=== PATIENT | male | born 1980 | race Caucasian/White ===

== ENCOUNTER 2017-11-27 03:44 | Inpatient (IN) | payer OTHER, MEDICAID ==
[~2017-11-27] VITALS: Ht 172.7 cm; Wt 92.2 kg
[2017-11-27] MEDS ORDERED: SODIUM CHLORIDE 0.9% 1,000 ML IV ONE (03:45)
[2017-11-27] MEDS ORDERED: SODIUM CHLORIDE 0.9% 1,000ML IVBOLUS ONE ×3 (04:00→06:00)
[2017-11-27] MEDS ORDERED: ONDANSETRON 2MG/ML, 2ML IVPush ONE (04:00)
[2017-11-27] MEDS ORDERED: SODIUM CHLORIDE FLUSH 10ML SYR IVF ONE (04:00)
[2017-11-27] MEDS ORDERED: HYDROmorphone 2 MG/ML, 1ML ONE (04:11)
[2017-11-27] MEDS ORDERED: ONDANSETRON 2MG/ML, 2ML ONE (04:12)
[2017-11-27 04:20] LABS: MEAN CORPUSCULAR HGB CONC 33.1 g/dL (33.2-36.2); MEAN CORPUSCULAR VOLUME 93.5 fL (81-97); MEAN PLATELET VOLUME 8.3 fL (7.4-10.4); PLATELET COUNT 303 x10^3/uL (130-400); RED BLOOD COUNT 5.73 x10^6/uL (4.38-5.82); RED CELL DISTRIBUTION WIDTH 14.9 % (9.4-14.8)
[2017-11-27] MEDS: HYDROmorphone 2 MG/ML, 1ML IVPush PRN ×6 (04:25→22:00)
[2017-11-27 04:30] LABS: INTERNATIONAL NORMALIZED RATIO 1.02 (0.93-1.1); PROTHROMBIN TIME 10.6 Seconds (9.6-11.5)
[2017-11-27 04:33] LABS: ALANINE AMINOTRANSFERASE 535 U/L (12-78); ALBUMIN 4.4 g/dL (3.4-5.0); ANION GAP 10 mmol/L (5-15); CALCIUM 9.3 mg/dL (8.5-10.1); CHLORIDE 102 mmol/L (98-107); CREATININE 1.25 mg/dL (0.7-1.3)
[2017-11-27 04:35] LABS: ALKALINE PHOSPHATASE 124 U/L (45-117); BILIRUBIN,TOTAL 1.4 mg/dL (0.2-1.0); TOTAL PROTEIN 8.6 g/dL (6.4-8.2)
[2017-11-27] MEDS ORDERED: OMNIPAQUE 350 MG/ML, 100ML BOTTLE ONE (04:48)
[2017-11-27 04:56] LABS: BASOPHILS # (AUTO) 0.02 x10^3/uL (0-0.1); BASOPHILS % (AUTO) 0 % (0-1); EOSINOPHILS # (AUTO) 0.03 x10^3/uL (0-0.4); EOSINOPHILS % (AUTO) 0 % (1-7); LYMPHOCYTES # (AUTO) 1.96 x10^3/uL (1-3.4); LYMPHOCYTES % (AUTO) 10 % (22-44); MD SCAN; MONOCYTES # (AUTO) 0.89 x10^3/uL (0.2-0.8); MONOCYTES % (AUTO) 5 % (2-9); NEUTROPHILS # (AUTO) 16.64 x10^3/uL (1.8-6.8); NEUTROPHILS % (AUTO) 85 % (42-75)
[2017-11-27] MEDS ORDERED: PIPERACILLIN/TAZO/PMX 3.375GM 50 ML IVPB ONE (05:30)
[2017-11-27] MEDS ORDERED: SODIUM CHLORIDE 0.9% 1,000 ML IV SCH (05:47)
[2017-11-27] MEDS ORDERED: CEFTRIAXONE PMX 1GM/50ML 50 ML ONE (05:49)
[2017-11-27] MEDS ORDERED: ENALAPRILAT 1.25 MG/ML, 2ML IVPush PRN (06:00)
[2017-11-27] MEDS ORDERED: PIPERACILLIN/TAZO/PMX 3.375GM 50 ML ONE (06:12)
[2017-11-27] MEDS: PIPERACILLIN/TAZO/PMX 3.375GM 50 ML IV SCH ×3 (06:25→18:13)
[2017-11-27 06:51] LABS: CHOL/HDL RATIO 3.6; LDL/HDL RATIO 2.2 (0.5-3.0)
[2017-11-27] MEDS ORDERED: MORPHINE SULFATE 4 MG/ML, 1ML ONE (06:59)
[2017-11-27] MEDS: morphine SULFATE 10 MG/ML, 1ML IVPush PRN ×2 (07:00→12:11)
[2017-11-27 07:12] VITALS: BP 137/92
[2017-11-27 08:02] VITALS: BP 137/92
[2017-11-27] MEDS ORDERED: HYDROmorphone 2 MG/ML, 1ML IVPush ONE (09:00)
[2017-11-27 13:43] VITALS: BP 132/97
[2017-11-27] MEDS: ONDANSETRON 2MG/ML, 2ML IVPush PRN ×2 (14:13→21:59)
[2017-11-27 19:00] VITALS: BP 99/59
[2017-11-27] MEDS: SODIUM CHLORIDE 0.9% 1,000 ML IV SCH (21:59)
[2017-11-28] VITALS (7 sets, daily range): BP systolic 63–97; BP diastolic 30–62
[2017-11-28] MEDS: HYDROmorphone 2 MG/ML, 1ML IVPush PRN ×3 (00:38→06:17)
[2017-11-28] MEDS: PIPERACILLIN/TAZO/PMX 3.375GM 50 ML IV SCH ×4 (00:39→21:39)
[2017-11-28] MEDS: SODIUM CHLORIDE 0.9% 1,000 ML IV SCH (03:52)
[2017-11-28] MEDS: ONDANSETRON 2MG/ML, 2ML IVPush PRN (03:52)
[2017-11-28 09:03] LABS: MEAN CORPUSCULAR HEMOGLOBIN 31.3 pg (27.5-34.5); MEAN CORPUSCULAR HGB CONC 32.9 g/dL (33.2-36.2); MEAN CORPUSCULAR VOLUME 95.2 fL (81-97); PLATELET COUNT 307 x10^3/uL (130-400); RED BLOOD COUNT 5.53 x10^6/uL (4.38-5.82); RED CELL DISTRIBUTION WIDTH 16.7 % (9.4-14.8)
[2017-11-28] MEDS ORDERED: NALOXONE 0.4 MG/ML, 1ML IVPush ONE (09:30)
[2017-11-28] MEDS ORDERED: NOREPINEPHRINE 4 MG in SODIUM CHLORIDE 0.9% 246 ML IV PRN (09:30)
[2017-11-28 09:52] LABS: MD YES
[2017-11-28 10:37] LABS: BAND#(MANUAL) 6.43 x10^3/uL; BANDS%(MANUAL) 24 % (0-7); LYMPH#(MANUAL) 1.88 x10^3/uL (1-3.4); LYMPHS% (MANUAL) 7 % (22-44); METAMYELOCYTES% (MANUAL) 3 % (0-1); MONOS#(MANUAL) 3.75 x10^3/uL (0.3-2.7); MONOS% (MANUAL) 14 % (2-9); MYELOCYTES# (MANUAL) 0.27 x10^3/uL (0-0); MYELOCYTES% (MANUAL) 1 % (0-0); SEG#(MANUAL) 13.67 x10^3/uL (1.8-6.8); SEGS% (MANUAL) 51 % (42-75)
[2017-11-28 10:39] LABS: ANISOCYTOSIS 1+; POLYCHROMASIA 1+
[2017-11-28 10:40] LABS: <PLATELET ESTIMATE> ADEQUATE; <PLT MORPHOLOGY> NORMAL PLT MORPH
[2017-11-28 11:23] LABS: ALBUMIN 2.8 g/dL (3.4-5.0); ANION GAP 18 mmol/L (5-15); CHLORIDE 107 mmol/L (98-107); CREATININE 4.65 mg/dL (0.7-1.3)
[2017-11-28 11:40] LABS: ALANINE AMINOTRANSFERASE 2538 U/L (12-78); ALKALINE PHOSPHATASE 71 U/L (45-117); BILIRUBIN,TOTAL 2.1 mg/dL (0.2-1.0); TOTAL PROTEIN 6.3 g/dL (6.4-8.2)
[2017-11-28] MEDS ORDERED: MIDAZOLAM 1 MG/ML, 5ML ONE (12:00)
[2017-11-28] MEDS ORDERED: VECURONIUM 10 MG ONE ×2 (12:00)
[2017-11-28 12:07] LABS: CALCIUM 5.8 mg/dL (8.5-10.1)
[2017-11-28] MEDS ORDERED: DEXTROSE 50%, 50ML SYRINGE ONE (12:10)
[2017-11-28] MEDS ORDERED: INSULIN REGULAR 100 UNITS/ML, 3ML VIAL ONE (12:11)
[2017-11-28] MEDS ORDERED: INSULIN REGULAR 100 UNITS/ML, 3ML VIAL IVPush ONE (12:30)
[2017-11-28] MEDS ORDERED: SODIUM BICARBONATE 8.4% 150 MEQ in DEXTROSE 5% 1,000 ML IV SCH (12:30)
[2017-11-28] MEDS ORDERED: CALCIUM CHLORIDE 10%, 10ML SYR IVPush ONE (12:30)
[2017-11-28] MEDS ORDERED: CALCIUM CHLORIDE 10%, 10ML SYR ONE (12:30)
[2017-11-28] MEDS ORDERED: DEXTROSE 50%, 50ML SYRINGE IVPush ONE (12:30)
[2017-11-28] MEDS ORDERED: DEXMEDETOMIDINE 200 MCG in SODIUM CHLORIDE 0.9% 48 ML IV PRN (13:00)
[2017-11-28] MEDS ORDERED: FENTANYL PF 2,500 MCG in SODIUM CHLORIDE 0.9% 200 ML IV PRN (13:00)
[2017-11-28] MEDS ORDERED: PHARMACY MAY ADJ FOR RENAL FX MC SCH (13:30)
[2017-11-28] MEDS ORDERED: LIDOCAINE-MPF 1%, 2ML ENDO PRN (13:30)
[2017-11-28] MEDS: HEPARIN 5,000 UNITS/ML, 1ML SQ SCH ×2 (15:00→21:39)
[2017-11-28] MEDS ORDERED: SODIUM CHLORIDE 0.9% 1,000ML IVBOLUS ONE ×3 (15:00→18:00)
[2017-11-28] MEDS ORDERED: PHENYLEPHRINE 20 MG in SODIUM CHLORIDE 0.9% 248 ML IV PRN (15:30)
[2017-11-28] MEDS ORDERED: VASOPRESSIN 100 UNIT in SODIUM CHLORIDE 0.9% 495 ML IV PRN (15:30)
[2017-11-28] MEDS ORDERED: SODIUM BICARB 8.4%, 50ML SYRINGE ONE (15:35)
[2017-11-28] MEDS ORDERED: SODIUM BICARB 8.4%, 50ML SYRINGE IVPush ONE (15:37)
[2017-11-28 15:57] LABS: ALBUMIN 1.2 g/dL (3.4-5.0); ANION GAP 33 mmol/L (5-15); CHLORIDE 99 mmol/L (98-107); CREATININE 2.64 mg/dL (0.7-1.3)
[2017-11-28 16:12] LABS: ALANINE AMINOTRANSFERASE 1716 U/L (12-78); ALKALINE PHOSPHATASE 41 U/L (45-117); BILIRUBIN,TOTAL 1.1 mg/dL (0.2-1.0); TOTAL PROTEIN 4.2 g/dL (6.4-8.2)
[2017-11-28 16:32] LABS: CALCIUM < 5.0 mg/dL (8.5-10.1)
[2017-11-28] MEDS ORDERED: EPINEPHRINE 2 MG in SODIUM CHLORIDE 0.9% 248 ML IV PRN (17:30)
[2017-11-28] MEDS: ALBUMIN HUMAN 25% 100 ML IV SCH (17:31)
[2017-11-28] MEDS ORDERED: LIDOCAINE 2%, 2ML ONE (17:44)
[2017-11-28] MEDS ORDERED: CALCIUM GLUCONATE IV SCH (18:00)
[2017-11-28] MEDS ORDERED: SODIUM CHLORIDE 0.9% IV SCH (18:00)
[2017-11-28 18:57] LABS: MICROSCOPIC INDICATED
[2017-11-28 18:58] LABS: AMPHETAMINE SCREEN, URINE Negative (Negative); BARBITURATE SCREEN, URINE Negative (Negative); BENZODIAZEPINE SCREEN, URINE Positive (Negative); CANNABINOID SCREEN, URINE Negative (Negative); COCAINE SCREEN, URINE Negative (Negative); METHADONE SCREEN, URINE Negative (Negative); OPIATE SCREEN, URINE Positive (Negative)
[2017-11-28 19:10] LABS: CULTURE INDICATED? YES
[2017-11-28] MEDS: SODIUM BICARBONATE 8.4% 150 MEQ in DEXTROSE 5% 1,000 ML IV SCH (19:23)
[2017-11-28] MEDS: NOREPINEPHRINE 8 MG in SODIUM CHLORIDE 0.9% 242 ML IV PRN (21:38)
[2017-11-28 22:05] LABS: ALBUMIN 2.7 g/dL (3.4-5.0); ANION GAP 10 mmol/L (5-15); CALCIUM 7.3 mg/dL (8.5-10.1); CHLORIDE 101 mmol/L (98-107)
[2017-11-28 22:22] LABS: ALANINE AMINOTRANSFERASE 3004 U/L (12-78); ALKALINE PHOSPHATASE 70 U/L (45-117); BILIRUBIN,TOTAL 2.4 mg/dL (0.2-1.0); CREATININE 2.22 mg/dL (0.7-1.3); TOTAL PROTEIN 5.2 g/dL (6.4-8.2)
[2017-11-28] MEDS: MIDAZOLAM HCL 25 MG in SODIUM CHLORIDE 0.9% 245 ML IV PRN (23:06)
[2017-11-29] MEDS: SODIUM BICARBONATE 8.4% 150 MEQ in DEXTROSE 5% 1,000 ML IV SCH ×3 (00:07→17:30)
[2017-11-29] MEDS: ALBUMIN HUMAN 25% 100 ML IV SCH ×4 (00:07→20:55)
[2017-11-29] MEDS: PIPERACILLIN/TAZO/PMX 3.375GM 50 ML IV SCH ×4 (04:10→22:31)
[2017-11-29] MEDS: HEPARIN 5,000 UNITS/ML, 1ML SQ SCH ×3 (04:10→20:55)
[2017-11-29] MEDS: NOREPINEPHRINE 8 MG in SODIUM CHLORIDE 0.9% 242 ML IV PRN (04:10)
[2017-11-29 04:35] LABS: BASOPHILS # (AUTO) 0.03 x10^3/uL (0-0.1); BASOPHILS % (AUTO) 0 % (0-1); EOSINOPHILS # (AUTO) 0.01 x10^3/uL (0-0.4); EOSINOPHILS % (AUTO) 0 % (1-7); LYMPHOCYTES % (AUTO) 16 % (22-44); MD NO; MEAN CORPUSCULAR HEMOGLOBIN 31.6 pg (27.5-34.5); MEAN CORPUSCULAR HGB CONC 33.8 g/dL (33.2-36.2); MEAN CORPUSCULAR VOLUME 93.7 fL (81-97); MEAN PLATELET VOLUME 8.6 fL (7.4-10.4); MONOCYTES # (AUTO) 0.23 x10^3/uL (0.2-0.8); MONOCYTES % (AUTO) 4 % (2-9); NEUTROPHILS # (AUTO) 5.33 x10^3/uL (1.8-6.8); NEUTROPHILS % (AUTO) 80 % (42-75); PLATELET COUNT 157 x10^3/uL (130-400); RED BLOOD COUNT 3.03 x10^6/uL (4.38-5.82); RED CELL DISTRIBUTION WIDTH 15.7 % (9.4-14.8)
[2017-11-29 04:37] LABS: FIO2 40 %
[2017-11-29 04:42] LABS: INTERNATIONAL NORMALIZED RATIO 1.16 (0.93-1.1)
[2017-11-29 04:49] LABS: CALCIUM 6.4 mg/dL (8.5-10.1); CHLORIDE 99 mmol/L (98-107); CREATININE 3.99 mg/dL (0.7-1.3)
[2017-11-29 05:05] LABS: ALANINE AMINOTRANSFERASE 1996 U/L (12-78); ALBUMIN 2.5 g/dL (3.4-5.0); ALKALINE PHOSPHATASE 51 U/L (45-117); ANION GAP 13 mmol/L (5-15); BILIRUBIN,TOTAL 2.3 mg/dL (0.2-1.0); TOTAL PROTEIN 4.8 g/dL (6.4-8.2)
[2017-11-29] MEDS ORDERED: CALCIUM GLUCONATE IV SCH ×4 (05:45→17:30)
[2017-11-29] MEDS ORDERED: SODIUM CHLORIDE 0.9% IV SCH ×7 (05:45→22:30)
[2017-11-29] MEDS ORDERED: MAGNESIUM SULFATE PMX 4GM/100M 100 ML IV ONE (07:30)
[2017-11-29] MEDS: MIDAZOLAM HCL 25 MG in SODIUM CHLORIDE 0.9% 245 ML IV PRN ×3 (09:32→22:32)
[2017-11-29] MEDS: PANTOPRAZOLE 40 MG IV IV SCH (09:33)
[2017-11-29] MEDS: ERGOCALCIFEROL 50,000 UNIT CAPSULE PO SCH (09:33)
[2017-11-29 10:18] LABS: ALBUMIN 2.8 g/dL (3.4-5.0); ANION GAP 11 mmol/L (5-15); CALCIUM 6.4 mg/dL (8.5-10.1); CHLORIDE 99 mmol/L (98-107)
[2017-11-29 10:36] LABS: ALANINE AMINOTRANSFERASE 1784 U/L (12-78); ALKALINE PHOSPHATASE 50 U/L (45-117); BILIRUBIN,TOTAL 2.8 mg/dL (0.2-1.0); CREATININE 4.44 mg/dL (0.7-1.3); TOTAL PROTEIN 5.1 g/dL (6.4-8.2)
[2017-11-29] MEDS: FENTANYL PF 2,500 MCG in SODIUM CHLORIDE 0.9% 200 ML IV PRN (10:49)
[2017-11-29] MEDS ORDERED: CALCIUM CHLORIDE 10% IV SCH ×3 (21:00→22:30)
[2017-11-30] MEDS: SODIUM BICARBONATE 8.4% 150 MEQ in DEXTROSE 5% 1,000 ML IV SCH ×2 (00:26→09:03)
[2017-11-30] MEDS ORDERED: LABETALOL 5MG/ML, 20ML ONE (02:48)
[2017-11-30] MEDS ORDERED: LABETALOL 5MG/ML, 20ML IVPush PRN ×2 (03:00)
[2017-11-30] MEDS: MIDAZOLAM HCL 25 MG in SODIUM CHLORIDE 0.9% 245 ML IV PRN ×4 (03:13→15:56)
[2017-11-30] MEDS: PIPERACILLIN/TAZO/PMX 3.375GM 50 ML IV SCH ×2 (03:24→10:04)
[2017-11-30 04:24] LABS: MEAN CORPUSCULAR HEMOGLOBIN 32.7 pg (27.5-34.5); MEAN CORPUSCULAR HGB CONC 34.8 g/dL (33.2-36.2); MEAN CORPUSCULAR VOLUME 93.9 fL (81-97); MEAN PLATELET VOLUME 8.3 fL (7.4-10.4); PLATELET COUNT 130 x10^3/uL (130-400); RED CELL DISTRIBUTION WIDTH 16.3 % (9.4-14.8)
[2017-11-30 04:27] LABS: ALBUMIN 2.6 g/dL (3.4-5.0); ANION GAP 9 mmol/L (5-15); CALCIUM 7.3 mg/dL (8.5-10.1); CHLORIDE 96 mmol/L (98-107); CREATININE 3.76 mg/dL (0.7-1.3)
[2017-11-30 04:34] LABS: ALANINE AMINOTRANSFERASE 1156 U/L (12-78)
[2017-11-30 04:35] LABS: ALKALINE PHOSPHATASE 43 U/L (45-117); BILIRUBIN,TOTAL 4.7 mg/dL (0.2-1.0)
[2017-11-30 04:58] LABS: MD YES
[2017-11-30 05:03] LABS: BAND#(MANUAL) 1.52 x10^3/uL; BANDS%(MANUAL) 20 % (0-7); EOS#(MANUAL) 0.08 x10^3/uL (0.0-0.4); EOS% (MANUAL) 1 % (1-7); LYMPH#(MANUAL) 1.82 x10^3/uL (1-3.4); LYMPHS% (MANUAL) 24 % (22-44); METAMYELOCYTES# (MANUAL) 0.15 x10^3/uL (0-0); METAMYELOCYTES% (MANUAL) 2 % (0-1); MONOS#(MANUAL) 0.38 x10^3/uL (0.3-2.7); MONOS% (MANUAL) 5 % (2-9); NRBC % (MANUAL) 2 % (0-1); SEG#(MANUAL) 3.65 x10^3/uL (1.8-6.8); SEGS% (MANUAL) 48 % (42-75)
[2017-11-30 05:04] LABS: <PLATELET ESTIMATE> ADEQUATE; <PLT MORPHOLOGY> NORMAL PLT MORPH; ANISOCYTOSIS 1+; POLYCHROMASIA 1+
[2017-11-30] MEDS: HEPARIN 5,000 UNITS/ML, 1ML SQ SCH (05:09)
[2017-11-30] MEDS: ALBUMIN HUMAN 25% 100 ML IV SCH (05:09)
[2017-11-30] MEDS: SODIUM CHLORIDE 0.9% IV SCH ×4 (05:09→21:30)
[2017-11-30] MEDS: CALCIUM CHLORIDE 10% IV SCH ×4 (05:09→21:30)
[2017-11-30] MEDS: FENTANYL PF 2,500 MCG in SODIUM CHLORIDE 0.9% 200 ML IV PRN (06:21)
[2017-11-30] MEDS ORDERED: SODIUM BICARBONATE 8.4% 150 MEQ in DEXTROSE 5% 1,000 ML IV SCH (09:30)
[2017-11-30] MEDS: PANTOPRAZOLE 40 MG IV IV SCH (10:02)
[2017-11-30 12:13] LABS: HIT RESULT NEGATIVE (NEGATIVE)
[2017-11-30 13:07] LABS: INTERNATIONAL NORMALIZED RATIO 0.98 (0.93-1.1); PROTHROMBIN TIME 10.2 Seconds (9.6-11.5)
[2017-11-30] MEDS ORDERED: PHYTONADIONE 10 MG in SODIUM CHLORIDE 0.9% 50 ML IV STA (13:07)
[2017-11-30] MEDS ORDERED: PHYTONADIONE 10 MG in SODIUM CHLORIDE 0.9% 50 ML IV ONE (13:30)
[2017-11-30 13:49] VITALS: BP 116/69
[2017-11-30 14:05] VITALS: BP 125/76
[2017-11-30 14:45] VITALS: BP 131/72
[2017-11-30] MEDS: DEXMEDETOMIDINE IV PRN (14:56)
[2017-11-30] MEDS: SODIUM CHLORIDE 0.9% IV PRN (14:56)
[2017-11-30] MEDS ORDERED: SODIUM CHLORIDE 0.9% IV SCH ×4 (15:00→15:03)
[2017-11-30] MEDS ORDERED: CALCIUM CHLORIDE 10% IV SCH ×4 (15:00→15:03)
[2017-11-30] MEDS ORDERED: OMNIPAQUE 350 MG/ML, 100ML BOTTLE ONE (17:07)
[2017-11-30] MEDS: MIDAZOLAM HCL 50 MG in SODIUM CHLORIDE 0.9% 240 ML IV PRN (20:01)
[2017-11-30] MEDS: PIPERACILLIN/TAZO 2.25 GM in NS 50 ML IV SCH (22:23)
[2017-11-30] MEDS: HYDROmorphone 2 MG/ML, 1ML IVPush PRN (23:50)
[2017-12-01] MEDS: HYDROmorphone 2 MG/ML, 1ML IVPush PRN ×3 (02:23→13:45)
[2017-12-01 03:32] LABS: MEAN CORPUSCULAR HEMOGLOBIN 31.5 pg (27.5-34.5); MEAN CORPUSCULAR HGB CONC 34.7 g/dL (33.2-36.2); MEAN CORPUSCULAR VOLUME 90.6 fL (81-97); MEAN PLATELET VOLUME 8.1 fL (7.4-10.4); PLATELET COUNT 123 x10^3/uL (130-400); RED BLOOD COUNT 2.63 x10^6/uL (4.38-5.82); RED CELL DISTRIBUTION WIDTH 17.6 % (9.4-14.8)
[2017-12-01 03:44] LABS: ALANINE AMINOTRANSFERASE 837 U/L (12-78); ALBUMIN 2.1 g/dL (3.4-5.0); ANION GAP 9 mmol/L (5-15); CHLORIDE 98 mmol/L (98-107)
[2017-12-01 03:47] LABS: ALKALINE PHOSPHATASE 46 U/L (45-117); BILIRUBIN,TOTAL 8.1 mg/dL (0.2-1.0); TOTAL PROTEIN 4.7 g/dL (6.4-8.2)
[2017-12-01 03:58] LABS: MD YES
[2017-12-01 04:01] LABS: BAND#(MANUAL) 1.61 x10^3/uL; BANDS%(MANUAL) 14 % (0-7); BASOS#(MANUAL) 0.12 x10^3/uL (0-0.1); BASOS% (MANUAL) 1 % (0-1); EOS#(MANUAL) 0.35 x10^3/uL (0.0-0.4); EOS% (MANUAL) 3 % (1-7); LYMPH#(MANUAL) 0.69 x10^3/uL (1-3.4); LYMPHS% (MANUAL) 6 % (22-44); METAMYELOCYTES# (MANUAL) 0.12 x10^3/uL (0-0); METAMYELOCYTES% (MANUAL) 1 % (0-1); MONOS#(MANUAL) 0.92 x10^3/uL (0.3-2.7); MONOS% (MANUAL) 8 % (2-9); NRBC % (MANUAL) 9 % (0-1); SEG#(MANUAL) 7.71 x10^3/uL (1.8-6.8); SEGS% (MANUAL) 67 % (42-75)
[2017-12-01 04:02] LABS: <PLATELET ESTIMATE> DECREASED; <PLT MORPHOLOGY> NORMAL PLT MORPH; ANISOCYTOSIS 1+; POLYCHROMASIA 1+
[2017-12-01 04:10] LABS: TRIGLYCERIDES 296 mg/dL (50-200)
[2017-12-01] MEDS: MIDAZOLAM HCL 50 MG in SODIUM CHLORIDE 0.9% 240 ML IV PRN ×3 (04:19→21:57)
[2017-12-01] MEDS: FENTANYL PF 2,500 MCG in SODIUM CHLORIDE 0.9% 200 ML IV PRN ×2 (04:20→22:15)
[2017-12-01] MEDS: PIPERACILLIN/TAZO 2.25 GM in NS 50 ML IV SCH ×3 (05:42→21:56)
[2017-12-01] MEDS ORDERED: DEXTROSE 50%, 50ML SYRINGE ONE (08:53)
[2017-12-01] MEDS: SODIUM CHLORIDE 0.9% IV SCH (08:57)
[2017-12-01] MEDS: CALCIUM CHLORIDE 10% IV SCH (08:57)
[2017-12-01] MEDS: SODIUM CHLORIDE 0.9% IV PRN (08:57)
[2017-12-01] MEDS: DEXMEDETOMIDINE IV PRN (08:57)
[2017-12-01] MEDS: PANTOPRAZOLE 40 MG IV IV SCH (09:30)
[2017-12-01] MEDS ORDERED: DEXTROSE 4 GM TAB.CHEW PO PRN (09:30)
[2017-12-01] MEDS ORDERED: DEXTROSE 10% 1,000 ML IV SCH (09:30)
[2017-12-01] MEDS ORDERED: GLUCAGON 1 MG IM PRN (09:30)
[2017-12-01] MEDS: DEXTROSE 50%, 50ML SYRINGE IVPush PRN ×2 (11:11→13:45)
[2017-12-01] MEDS ORDERED: MIDAZOLAM 1 MG/ML, 5ML ONE (13:57)
[2017-12-01] MEDS ORDERED: CALCIUM CHLORIDE 10% IV SCH (15:36)
[2017-12-01] MEDS ORDERED: SODIUM CHLORIDE 0.9% IV SCH (15:36)
[2017-12-01] MEDS ORDERED: MIDAZOLAM 1 MG/ML, 5ML IVPush ONE (16:30)
[2017-12-01] MEDS: DEXMEDETOMIDINE 1,000 MCG in SODIUM CHLORIDE 0.9% 240 ML IV PRN (16:33)
[2017-12-01] MEDS: NOREPINEPHRINE 8 MG in SODIUM CHLORIDE 0.9% 242 ML IV PRN ×2 (16:34→21:56)
[2017-12-01] MEDS: SODIUM CHLORIDE FLUSH 10ML SYR IVF SCH (21:55)
[2017-12-02 04:06] LABS: ALANINE AMINOTRANSFERASE 566 U/L (12-78); ALBUMIN 1.8 g/dL (3.4-5.0); ANION GAP 9 mmol/L (5-15); CALCIUM 7.5 mg/dL (8.5-10.1); CHLORIDE 99 mmol/L (98-107); CREATININE 5.29 mg/dL (0.7-1.3)
[2017-12-02 04:08] LABS: ALKALINE PHOSPHATASE 55 U/L (45-117); BILIRUBIN,TOTAL 11.3 mg/dL (0.2-1.0); TOTAL PROTEIN 4.8 g/dL (6.4-8.2)
[2017-12-02 04:09] LABS: MEAN CORPUSCULAR HEMOGLOBIN 31.9 pg (27.5-34.5); MEAN CORPUSCULAR HGB CONC 34.9 g/dL (33.2-36.2); MEAN CORPUSCULAR VOLUME 91.5 fL (81-97); MEAN PLATELET VOLUME 8.1 fL (7.4-10.4); PLATELET COUNT 142 x10^3/uL (130-400); RED BLOOD COUNT 2.72 x10^6/uL (4.38-5.82); RED CELL DISTRIBUTION WIDTH 17.5 % (9.4-14.8)
[2017-12-02 04:25] LABS: MD YES
[2017-12-02 04:28] LABS: BAND#(MANUAL) 2.48 x10^3/uL; BANDS%(MANUAL) 13 % (0-7); EOS#(MANUAL) 0.96 x10^3/uL (0.0-0.4); EOS% (MANUAL) 5 % (1-7); LYMPH#(MANUAL) 1.53 x10^3/uL (1-3.4); LYMPHS% (MANUAL) 8 % (22-44); METAMYELOCYTES# (MANUAL) 0.96 x10^3/uL (0-0); METAMYELOCYTES% (MANUAL) 5 % (0-1); MONOS#(MANUAL) 1.53 x10^3/uL (0.3-2.7); MONOS% (MANUAL) 8 % (2-9); MYELOCYTES# (MANUAL) 0.19 x10^3/uL (0-0); MYELOCYTES% (MANUAL) 1 % (0-0); NRBC % (MANUAL) 7 % (0-1); SEG#(MANUAL) 11.46 x10^3/uL (1.8-6.8); SEGS% (MANUAL) 60 % (42-75)
[2017-12-02 04:29] LABS: <PLATELET ESTIMATE> DECREASED; <PLT MORPHOLOGY> NORMAL PLT MORPH; ANISOCYTOSIS 1+; POLYCHROMASIA 1+
[2017-12-02 04:30] VITALS: BP 99/50
[2017-12-02] MEDS: PIPERACILLIN/TAZO 2.25 GM in NS 50 ML IV SCH ×2 (05:12→17:36)
[2017-12-02] MEDS: DEXMEDETOMIDINE 1,000 MCG in SODIUM CHLORIDE 0.9% 240 ML IV PRN ×2 (05:12→23:34)
[2017-12-02] MEDS: PANTOPRAZOLE 40 MG IV IV SCH (08:35)
[2017-12-02] MEDS ORDERED: DEXTROSE 10% 1,000 ML IV SCH (09:30)
[2017-12-02] MEDS: SODIUM CHLORIDE FLUSH 10ML SYR IVF SCH ×2 (09:36→21:30)
[2017-12-02] MEDS: DEXTROSE 10% 1,000 ML IV SCH (09:46)
[2017-12-02] MEDS ORDERED: ALBUMIN HUMAN 25% 100 ML IV PRN (12:00)
[2017-12-02] MEDS: ALBUMIN HUMAN 25% 100 ML IV PRN (13:45)
[2017-12-02] MEDS: SODIUM CHLORIDE 0.9% IV SCH (16:19)
[2017-12-02] MEDS: CALCIUM CHLORIDE 10% IV SCH (16:19)
[2017-12-02] MEDS: FENTANYL PF 2,500 MCG in SODIUM CHLORIDE 0.9% 200 ML IV PRN (18:32)
[2017-12-02] MEDS: MIDAZOLAM HCL 50 MG in SODIUM CHLORIDE 0.9% 240 ML IV PRN (18:33)
[2017-12-03] MEDS: PIPERACILLIN/TAZO 2.25 GM in NS 50 ML IV SCH ×3 (01:50→17:30)
[2017-12-03] MEDS: NOREPINEPHRINE 8 MG in SODIUM CHLORIDE 0.9% 242 ML IV PRN (03:20)
[2017-12-03 05:26] LABS: MEAN CORPUSCULAR HEMOGLOBIN 31.7 pg (27.5-34.5); MEAN CORPUSCULAR VOLUME 90.5 fL (81-97); MEAN PLATELET VOLUME 8.3 fL (7.4-10.4); PLATELET COUNT 150 x10^3/uL (130-400); RED BLOOD COUNT 2.61 x10^6/uL (4.38-5.82)
[2017-12-03 05:29] LABS: ALBUMIN 1.8 g/dL (3.4-5.0); ANION GAP 7 mmol/L (5-15); CALCIUM 8.6 mg/dL (8.5-10.1); CHLORIDE 104 mmol/L (98-107)
[2017-12-03 05:45] LABS: ALANINE AMINOTRANSFERASE 341 U/L (12-78); ALKALINE PHOSPHATASE 61 U/L (45-117); BILIRUBIN,TOTAL 12.3 mg/dL (0.2-1.0); CREATININE 4.99 mg/dL (0.7-1.3); PREALBUMIN 6.2 mg/dL (20.0-40.0); TOTAL PROTEIN 4.8 g/dL (6.4-8.2)
[2017-12-03 06:06] LABS: MD YES
[2017-12-03 06:07] LABS: % IRON SATURATION 11 % (20-55); IRON LEVEL 20 mcg/dL (65-175); TOTAL IRON BINDING CAPACITY 176 mcg/dL (250-450)
[2017-12-03 06:10] LABS: ANISOCYTOSIS 1+; BAND#(MANUAL) 3.45 x10^3/uL; BANDS%(MANUAL) 15 % (0-7); EOS#(MANUAL) 0.23 x10^3/uL (0.0-0.4); EOS% (MANUAL) 1 % (1-7); LYMPH#(MANUAL) 0.92 x10^3/uL (1-3.4); LYMPHS% (MANUAL) 4 % (22-44); METAMYELOCYTES# (MANUAL) 1.61 x10^3/uL (0-0); METAMYELOCYTES% (MANUAL) 7 % (0-1); MONOS#(MANUAL) 0.92 x10^3/uL (0.3-2.7); MONOS% (MANUAL) 4 % (2-9); MYELOCYTES# (MANUAL) 0.69 x10^3/uL (0-0); MYELOCYTES% (MANUAL) 3 % (0-0); NRBC % (MANUAL) 3 % (0-1); POLYCHROMASIA 1+; SEG#(MANUAL) 15.18 x10^3/uL (1.8-6.8); SEGS% (MANUAL) 66 % (42-75); TOXIC GRAN 1+
[2017-12-03 06:11] LABS: <PLATELET ESTIMATE> ADEQUATE; <PLT MORPHOLOGY> NORMAL PLT MORPH
[2017-12-03 06:14] LABS: BILIRUBIN, DIRECT 10.2 mg/dL (0.1-0.2)
[2017-12-03] MEDS: ERGOCALCIFEROL 50,000 UNIT CAPSULE PO SCH (08:30)
[2017-12-03] MEDS: CALCIUM CHLORIDE 10% IV SCH (08:44)
[2017-12-03] MEDS: SODIUM CHLORIDE 0.9% IV SCH (08:44)
[2017-12-03] MEDS: MIDAZOLAM HCL 50 MG in SODIUM CHLORIDE 0.9% 240 ML IV PRN (08:44)
[2017-12-03] MEDS: DEXTROSE 10% 1,000 ML IV SCH (08:45)
[2017-12-03] MEDS: PANTOPRAZOLE 40 MG IV IV SCH (08:48)
[2017-12-03] MEDS: SODIUM CHLORIDE FLUSH 10ML SYR IVF SCH ×2 (08:49→21:18)
[2017-12-03] MEDS ORDERED: FILTER, DISP 1.2 MICRON FOR TPN/PVN IV PRN (09:30)
[2017-12-03] MEDS ORDERED: SODIUM CHLORIDE 0.9% IV SCH ×2 (10:49→17:00)
[2017-12-03] MEDS ORDERED: CALCIUM CHLORIDE 10% IV SCH ×2 (10:49→17:00)
[2017-12-03] MEDS ORDERED: MIDAZOLAM HCL 100 MG in SODIUM CHLORIDE 0.9% 230 ML IV PRN (11:30)
[2017-12-03] MEDS: DEXMEDETOMIDINE IV PRN (13:49)
[2017-12-03] MEDS: SODIUM CHLORIDE 0.9% IV PRN (13:49)
[2017-12-03] MEDS: FENTANYL PF 2,500 MCG in SODIUM CHLORIDE 0.9% 200 ML IV PRN (15:51)
[2017-12-03] MEDS ORDERED: DEXTROSE 70% IV SCH (17:00)
[2017-12-03] MEDS ORDERED: [UNRECOGNIZED DRUG - OTHER] IV SCH (17:00)
[2017-12-03] MEDS ORDERED: AMINO ACID 10% IV SCH (17:00)
[2017-12-03] MEDS ORDERED: FAT EMULSIONS IV SCH (17:00)
[2017-12-03] MEDS ORDERED: DEXTROSE 10% 500 ML IV PRN (17:00)
[2017-12-03] MEDS ORDERED: TPN PER PHARMACY IV SCH (17:00)
[2017-12-03] MEDS ORDERED: DEXTROSE 50%, 50ML SYRINGE IVPush PRN (17:00)
[2017-12-03] MEDS: INSULIN REGULAR LOW DOSE Q6H X 48HRS SQ-INSULIN SCH (21:00)
[2017-12-04] MEDS: PIPERACILLIN/TAZO 2.25 GM in NS 50 ML IV SCH (02:05)
[2017-12-04] MEDS: INSULIN REGULAR LOW DOSE Q6H X 48HRS SQ-INSULIN SCH ×4 (03:00→21:00)
[2017-12-04 05:53] LABS: MEAN CORPUSCULAR HEMOGLOBIN 31.7 pg (27.5-34.5); MEAN CORPUSCULAR HGB CONC 35.1 g/dL (33.2-36.2); MEAN CORPUSCULAR VOLUME 90.5 fL (81-97); MEAN PLATELET VOLUME 8.2 fL (7.4-10.4); PLATELET COUNT 173 x10^3/uL (130-400); RED BLOOD COUNT 2.83 x10^6/uL (4.38-5.82); RED CELL DISTRIBUTION WIDTH 17.9 % (9.4-14.8)
[2017-12-04 06:02] LABS: ALANINE AMINOTRANSFERASE 228 U/L (12-78); ALBUMIN 1.8 g/dL (3.4-5.0); ANION GAP 10 mmol/L (5-15); CHLORIDE 103 mmol/L (98-107); CREATININE 5.14 mg/dL (0.7-1.3)
[2017-12-04 06:05] LABS: ALKALINE PHOSPHATASE 76 U/L (45-117); BILIRUBIN,TOTAL 14.6 mg/dL (0.2-1.0)
[2017-12-04 06:08] LABS: TRIGLYCERIDES 482 mg/dL (50-200)
[2017-12-04 06:15] LABS: MD YES
[2017-12-04 06:18] LABS: ANISOCYTOSIS 1+; BAND#(MANUAL) 4.13 x10^3/uL; BANDS%(MANUAL) 12 % (0-7); LYMPH#(MANUAL) 1.03 x10^3/uL (1-3.4); LYMPHS% (MANUAL) 3 % (22-44); METAMYELOCYTES# (MANUAL) 1.72 x10^3/uL (0-0); METAMYELOCYTES% (MANUAL) 5 % (0-1); MONOS#(MANUAL) 2.41 x10^3/uL (0.3-2.7); MONOS% (MANUAL) 7 % (2-9); MYELOCYTES# (MANUAL) 0.69 x10^3/uL (0-0); MYELOCYTES% (MANUAL) 2 % (0-0); NRBC % (MANUAL) 2 % (0-1); POLYCHROMASIA 1+; SEG#(MANUAL) 24.42 x10^3/uL (1.8-6.8); SEGS% (MANUAL) 71 % (42-75); TOXIC GRAN 1+
[2017-12-04 06:19] LABS: <PLATELET ESTIMATE> ADEQUATE; <PLT MORPHOLOGY> NORMAL PLT MORPH
[2017-12-04] MEDS ORDERED: MEROPENEM 1 GM in SODIUM CHLORIDE 0.9% 100 ML IV SCH (09:30)
[2017-12-04] MEDS: DEXTROSE 10% 1,000 ML IV SCH (09:30)
[2017-12-04] MEDS: PANTOPRAZOLE 40 MG IV IV SCH (10:16)
[2017-12-04] MEDS: SODIUM CHLORIDE FLUSH 10ML SYR IVF SCH ×2 (10:16→20:45)
[2017-12-04] MEDS: NOREPINEPHRINE 16 MG in SODIUM CHLORIDE 0.9% 234 ML IV PRN (10:17)
[2017-12-04 14:46] LABS: MEAN CORPUSCULAR HEMOGLOBIN 31.2 pg (27.5-34.5); MEAN CORPUSCULAR HGB CONC 34.8 g/dL (33.2-36.2); MEAN CORPUSCULAR VOLUME 89.6 fL (81-97); MEAN PLATELET VOLUME 8.3 fL (7.4-10.4); PLATELET COUNT 185 x10^3/uL (130-400); RED CELL DISTRIBUTION WIDTH 18.5 % (9.4-14.8)
[2017-12-04 14:51] LABS: ALBUMIN 1.8 g/dL (3.4-5.0); ANION GAP 6 mmol/L (5-15); CHLORIDE 112 mmol/L (98-107)
[2017-12-04 15:07] LABS: MD YES
[2017-12-04 15:10] LABS: BAND#(MANUAL) 3.46 x10^3/uL; BANDS%(MANUAL) 10 % (0-7); CALCIUM 17.3 mg/dL (8.5-10.1); LYMPH#(MANUAL) 0.69 x10^3/uL (1-3.4); LYMPHS% (MANUAL) 2 % (22-44); METAMYELOCYTES# (MANUAL) 1.73 x10^3/uL (0-0); METAMYELOCYTES% (MANUAL) 5 % (0-1); MONOS#(MANUAL) 1.04 x10^3/uL (0.3-2.7); MONOS% (MANUAL) 3 % (2-9); MYELOCYTES# (MANUAL) 1.38 x10^3/uL (0-0); MYELOCYTES% (MANUAL) 4 % (0-0); SEGS% (MANUAL) 76 % (42-75)
[2017-12-04 15:11] LABS: ANISOCYTOSIS 1+; TOXIC GRAN 2+
[2017-12-04 15:12] LABS: <PLATELET ESTIMATE> ADEQUATE; BASOPHILLIC STIPPLING 1+; LARGE PLATELETS 1+; POLYCHROMASIA 2+
[2017-12-04] MEDS: FENTANYL PF 2,500 MCG in SODIUM CHLORIDE 0.9% 200 ML IV PRN (15:50)
[2017-12-04] MEDS ORDERED: FILTER, DISP 1.2 MICRON FOR TPN/PVN IV PRN (17:00)
[2017-12-04] MEDS ORDERED: [UNRECOGNIZED DRUG - OTHER] IV SCH (17:00)
[2017-12-04] MEDS ORDERED: STERILE WATER IV SCH (17:00)
[2017-12-04] MEDS ORDERED: DEXTROSE 70% IV SCH (17:00)
[2017-12-04] MEDS ORDERED: AMINO ACID 10% IV SCH (17:00)
[2017-12-04] MEDS: MEROPENEM 500 MG in SODIUM CHLORIDE 0.9% 100 ML IV SCH (20:46)
[2017-12-04] MEDS: DEXMEDETOMIDINE IV PRN (22:12)
[2017-12-04] MEDS: MIDAZOLAM HCL 100 MG in SODIUM CHLORIDE 0.9% 230 ML IV PRN (22:12)
[2017-12-04] MEDS: SODIUM CHLORIDE 0.9% IV PRN (22:12)
[2017-12-05] MEDS: INSULIN REGULAR LOW DOSE Q6H X 48HRS SQ-INSULIN SCH ×3 (05:14→15:00)
[2017-12-05 05:29] LABS: MEAN CORPUSCULAR HEMOGLOBIN 31.8 pg (27.5-34.5); MEAN CORPUSCULAR HGB CONC 35.4 g/dL (33.2-36.2); MEAN CORPUSCULAR VOLUME 89.8 fL (81-97); MEAN PLATELET VOLUME 8.2 fL (7.4-10.4); PLATELET COUNT 223 x10^3/uL (130-400); RED BLOOD COUNT 2.72 x10^6/uL (4.38-5.82); RED CELL DISTRIBUTION WIDTH 18.3 % (9.4-14.8)
[2017-12-05 05:31] LABS: CHLORIDE 106 mmol/L (98-107)
[2017-12-05 05:39] LABS: ALANINE AMINOTRANSFERASE 178 U/L (12-78); ALBUMIN 1.8 g/dL (3.4-5.0); ALKALINE PHOSPHATASE 85 U/L (45-117); ANION GAP 12 mmol/L (5-15); BILIRUBIN,TOTAL 14.8 mg/dL (0.2-1.0); CALCIUM 9.1 mg/dL (8.5-10.1); CREATININE 3.98 mg/dL (0.7-1.3); TOTAL PROTEIN 5.5 g/dL (6.4-8.2)
[2017-12-05 06:04] LABS: MD YES
[2017-12-05 06:06] LABS: BAND#(MANUAL) 2.33 x10^3/uL; BANDS%(MANUAL) 7 % (0-7); LYMPH#(MANUAL) 1.67 x10^3/uL (1-3.4); LYMPHS% (MANUAL) 5 % (22-44); METAMYELOCYTES# (MANUAL) 0.67 x10^3/uL (0-0); METAMYELOCYTES% (MANUAL) 2 % (0-1); MONOS#(MANUAL) 0.33 x10^3/uL (0.3-2.7); MONOS% (MANUAL) 1 % (2-9); MYELOCYTES# (MANUAL) 0.67 x10^3/uL (0-0); MYELOCYTES% (MANUAL) 2 % (0-0); NRBC % (MANUAL) 2 % (0-1)
[2017-12-05 06:07] LABS: SEG#(MANUAL) 27.31 x10^3/uL (1.8-6.8); SEGS% (MANUAL) 82 % (42-75)
[2017-12-05 06:08] LABS: ANISOCYTOSIS 1+; REACTIVE LYMPHS # (MANUAL) 0.33 x10^3/uL (0-0); REACTIVE LYMPHS % (MANUAL) 1 % (0-0)
[2017-12-05 06:09] LABS: POLYCHROMASIA 1+; TOXIC GRAN 2+
[2017-12-05 06:10] LABS: <PLATELET ESTIMATE> ADEQUATE
[2017-12-05 06:11] LABS: LARGE PLATELETS 1+
[2017-12-05] MEDS: FENTANYL PF 2,500 MCG in SODIUM CHLORIDE 0.9% 200 ML IV PRN ×2 (08:21→22:56)
[2017-12-05] MEDS: PANTOPRAZOLE 40 MG IV IV SCH (09:14)
[2017-12-05] MEDS: SODIUM CHLORIDE FLUSH 10ML SYR IVF SCH ×2 (09:14→21:40)
[2017-12-05] MEDS: DEXTROSE 10% 1,000 ML IV SCH (09:30)
[2017-12-05] MEDS ORDERED: SODIUM CHLORIDE 0.9% IV ONE (10:00)
[2017-12-05] MEDS ORDERED: SODIUM PHOSPHATE IV ONE (10:00)
[2017-12-05] MEDS ORDERED: LIDOCAINE 1%, 20ML ONE (11:09)
[2017-12-05] MEDS: MIDAZOLAM HCL 100 MG in SODIUM CHLORIDE 0.9% 230 ML IV PRN (14:10)
[2017-12-05 14:33] LABS: MEAN CORPUSCULAR HEMOGLOBIN 31.7 pg (27.5-34.5); MEAN CORPUSCULAR HGB CONC 35.3 g/dL (33.2-36.2); MEAN CORPUSCULAR VOLUME 89.7 fL (81-97); MEAN PLATELET VOLUME 8.2 fL (7.4-10.4); PLATELET COUNT 256 x10^3/uL (130-400); RED BLOOD COUNT 2.64 x10^6/uL (4.38-5.82)
[2017-12-05 14:34] LABS: MD YES
[2017-12-05 14:43] LABS: ALBUMIN 1.9 g/dL (3.4-5.0); ANION GAP 13 mmol/L (5-15); CALCIUM 8.7 mg/dL (8.5-10.1); CHLORIDE 106 mmol/L (98-107)
[2017-12-05 14:45] LABS: CREATININE 2.71 mg/dL (0.7-1.3)
[2017-12-05 15:11] LABS: BAND#(MANUAL) 2.67 x10^3/uL; BANDS%(MANUAL) 8 % (0-7); LYMPHS% (MANUAL) 6 % (22-44); METAMYELOCYTES# (MANUAL) 0.67 x10^3/uL (0-0); METAMYELOCYTES% (MANUAL) 2 % (0-1); MONOS#(MANUAL) 0.67 x10^3/uL (0.3-2.7); MONOS% (MANUAL) 2 % (2-9); MYELOCYTES# (MANUAL) 0.67 x10^3/uL (0-0); MYELOCYTES% (MANUAL) 2 % (0-0); REACTIVE LYMPHS # (MANUAL) 0.33 x10^3/uL (0-0); REACTIVE LYMPHS % (MANUAL) 1 % (0-0); SEG#(MANUAL) 26.39 x10^3/uL (1.8-6.8); SEGS% (MANUAL) 79 % (42-75)
[2017-12-05 15:12] LABS: <PLATELET ESTIMATE> ADEQUATE; ANISOCYTOSIS 1+; LARGE PLATELETS 1+; NRBC % (MANUAL) 1 % (0-1); POLYCHROMASIA 1+; TOXIC GRAN 2+
[2017-12-05] MEDS ORDERED: DEXTROSE 70% IV SCH (17:00)
[2017-12-05] MEDS ORDERED: AMINO ACID 10% IV SCH (17:00)
[2017-12-05] MEDS ORDERED: FAT EMULSIONS IV SCH (17:00)
[2017-12-05] MEDS ORDERED: FILTER, DISP 1.2 MICRON FOR TPN/PVN IV PRN (17:00)
[2017-12-05] MEDS ORDERED: [UNRECOGNIZED DRUG - OTHER] IV SCH (17:00)
[2017-12-05] MEDS: HEPARIN 5,000 UNITS/ML, 1ML SQ SCH (17:21)
[2017-12-05] MEDS: MEROPENEM 500 MG in SODIUM CHLORIDE 0.9% 100 ML IV SCH (21:39)
[2017-12-06] MEDS: MIDAZOLAM HCL 100 MG in SODIUM CHLORIDE 0.9% 230 ML IV PRN ×3 (00:03→23:18)
[2017-12-06 05:01] LABS: MEAN CORPUSCULAR HGB CONC 35.3 g/dL (33.2-36.2); MEAN CORPUSCULAR VOLUME 90.7 fL (81-97); MEAN PLATELET VOLUME 8.3 fL (7.4-10.4); PLATELET COUNT 277 x10^3/uL (130-400); RED CELL DISTRIBUTION WIDTH 18.2 % (9.4-14.8)
[2017-12-06 05:04] LABS: CHLORIDE 106 mmol/L (98-107)
[2017-12-06 05:10] LABS: ALANINE AMINOTRANSFERASE 144 U/L (12-78); ALBUMIN 1.7 g/dL (3.4-5.0); ALKALINE PHOSPHATASE 90 U/L (45-117); ANION GAP 14 mmol/L (5-15); CALCIUM 7.9 mg/dL (8.5-10.1); CREATININE 3.53 mg/dL (0.7-1.3); TOTAL PROTEIN 5.9 g/dL (6.4-8.2)
[2017-12-06] MEDS: HEPARIN 5,000 UNITS/ML, 1ML SQ SCH ×2 (05:30→17:28)
[2017-12-06 05:44] LABS: MD YES
[2017-12-06 05:51] LABS: BAND#(MANUAL) 2.89 x10^3/uL; BANDS%(MANUAL) 11 % (0-7); EOS#(MANUAL) 0.26 x10^3/uL (0.0-0.4); EOS% (MANUAL) 1 % (1-7); LYMPH#(MANUAL) 1.84 x10^3/uL (1-3.4); LYMPHS% (MANUAL) 7 % (22-44); MONOS#(MANUAL) 0.26 x10^3/uL (0.3-2.7); MONOS% (MANUAL) 1 % (2-9); MYELOCYTES# (MANUAL) 0.26 x10^3/uL (0-0); MYELOCYTES% (MANUAL) 1 % (0-0)
[2017-12-06 05:52] LABS: METAMYELOCYTES# (MANUAL) 1.32 x10^3/uL (0-0); METAMYELOCYTES% (MANUAL) 5 % (0-1); NRBC % (MANUAL) 1 % (0-1); REACTIVE LYMPHS # (MANUAL) 0.26 x10^3/uL (0-0); REACTIVE LYMPHS % (MANUAL) 1 % (0-0)
[2017-12-06 05:53] LABS: SEGS% (MANUAL) 73 % (42-75)
[2017-12-06 05:54] LABS: <PLATELET ESTIMATE> ADEQUATE
[2017-12-06 05:55] LABS: <PLT MORPHOLOGY> NORMAL PLT MORPH; ANISOCYTOSIS 1+; POLYCHROMASIA 1+
[2017-12-06] MEDS: DEXMEDETOMIDINE IV PRN (06:39)
[2017-12-06] MEDS: SODIUM CHLORIDE 0.9% IV PRN (06:39)
[2017-12-06] MEDS: FENTANYL PF 2,500 MCG in SODIUM CHLORIDE 0.9% 200 ML IV PRN (08:15)
[2017-12-06] MEDS: PANTOPRAZOLE 40 MG IV IV SCH (08:26)
[2017-12-06] MEDS: ERGOCALCIFEROL 50,000 UNIT CAPSULE PO SCH (08:26)
[2017-12-06] MEDS: SODIUM CHLORIDE FLUSH 10ML SYR IVF SCH ×2 (08:26→23:17)
[2017-12-06] MEDS: INSULIN REGULAR LOW DOSE QDAY SQ-INSULIN SCH (08:52)
[2017-12-06] MEDS ORDERED: INSULIN NPH HUMAN 100 UNIT/ML, 3ML VIAL SQ-INSULIN SCH (10:00)
[2017-12-06] MEDS: LINEZOLID PMX 600MG/300ML 300 ML IV SCH ×2 (11:40→23:18)
[2017-12-06 14:23] LABS: ALBUMIN 1.8 g/dL (3.4-5.0); ANION GAP 10 mmol/L (5-15); CALCIUM 8.9 mg/dL (8.5-10.1); CHLORIDE 106 mmol/L (98-107)
[2017-12-06 14:24] LABS: CREATININE 2.52 mg/dL (0.7-1.3)
[2017-12-06 14:25] LABS: MEAN CORPUSCULAR HGB CONC 34.9 g/dL (33.2-36.2); MEAN CORPUSCULAR VOLUME 88.9 fL (81-97); RED BLOOD COUNT 2.51 x10^6/uL (4.38-5.82); RED CELL DISTRIBUTION WIDTH 18.5 % (9.4-14.8)
[2017-12-06 14:26] LABS: MD YES; MEAN PLATELET VOLUME 8.1 fL (7.4-10.4); PLATELET COUNT 333 x10^3/uL (130-400)
[2017-12-06 14:45] LABS: BAND#(MANUAL) 1.44 x10^3/uL; BANDS%(MANUAL) 5 % (0-7); EOS#(MANUAL) 0.86 x10^3/uL (0.0-0.4); EOS% (MANUAL) 3 % (1-7); LYMPH#(MANUAL) 1.44 x10^3/uL (1-3.4); LYMPHS% (MANUAL) 5 % (22-44); METAMYELOCYTES# (MANUAL) 0.86 x10^3/uL (0-0); METAMYELOCYTES% (MANUAL) 3 % (0-1); MONOS#(MANUAL) 0.29 x10^3/uL (0.3-2.7); MONOS% (MANUAL) 1 % (2-9); MYELOCYTES# (MANUAL) 0.29 x10^3/uL (0-0); MYELOCYTES% (MANUAL) 1 % (0-0); NRBC % (MANUAL) 3 % (0-1); REACTIVE LYMPHS # (MANUAL) 0.29 x10^3/uL (0-0); REACTIVE LYMPHS % (MANUAL) 1 % (0-0); SEG#(MANUAL) 23.33 x10^3/uL (1.8-6.8); SEGS% (MANUAL) 81 % (42-75)
[2017-12-06 14:47] LABS: ANISOCYTOSIS 1+; POLYCHROMASIA 1+
[2017-12-06 14:48] LABS: <PLATELET ESTIMATE> ADEQUATE; <PLT MORPHOLOGY> NORMAL PLT MORPH; TOXIC GRAN 1+
[2017-12-06] MEDS ORDERED: DEXTROSE 70% IV SCH (17:00)
[2017-12-06] MEDS ORDERED: [UNRECOGNIZED DRUG - OTHER] IV SCH (17:00)
[2017-12-06] MEDS ORDERED: AMINO ACID 10% IV SCH (17:00)
[2017-12-06] MEDS ORDERED: STERILE WATER IV SCH (17:00)
[2017-12-06] MEDS: MEROPENEM 500 MG in SODIUM CHLORIDE 0.9% 100 ML IV SCH (19:48)
[2017-12-06] MEDS: NOREPINEPHRINE 16 MG in SODIUM CHLORIDE 0.9% 234 ML IV PRN (23:18)
[2017-12-07] MEDS: SODIUM CHLORIDE 0.9% IV PRN ×2 (03:28→20:12)
[2017-12-07] MEDS: DEXMEDETOMIDINE IV PRN ×2 (03:28→20:12)
[2017-12-07] MEDS: FENTANYL PF 2,500 MCG in SODIUM CHLORIDE 0.9% 200 ML IV PRN ×2 (04:33→22:11)
[2017-12-07] MEDS: HEPARIN 5,000 UNITS/ML, 1ML SQ SCH ×2 (05:32→20:50)
[2017-12-07 05:54] LABS: ALANINE AMINOTRANSFERASE 117 U/L (12-78); ALBUMIN 1.7 g/dL (3.4-5.0); ANION GAP 16 mmol/L (5-15); CALCIUM 8.4 mg/dL (8.5-10.1); CHLORIDE 104 mmol/L (98-107); CREATININE 3.56 mg/dL (0.7-1.3)
[2017-12-07 05:56] LABS: ALKALINE PHOSPHATASE 103 U/L (45-117); BILIRUBIN,TOTAL 8.9 mg/dL (0.2-1.0); TOTAL PROTEIN 6.6 g/dL (6.4-8.2)
[2017-12-07 06:10] LABS: MEAN CORPUSCULAR HEMOGLOBIN 30.7 pg (27.5-34.5); MEAN CORPUSCULAR HGB CONC 34.5 g/dL (33.2-36.2); MEAN PLATELET VOLUME 8.2 fL (7.4-10.4); PLATELET COUNT 395 x10^3/uL (130-400); RED BLOOD COUNT 2.53 x10^6/uL (4.38-5.82); RED CELL DISTRIBUTION WIDTH 18.3 % (9.4-14.8)
[2017-12-07 06:26] LABS: TRIGLYCERIDES 412 mg/dL (50-200)
[2017-12-07 06:41] LABS: MD YES
[2017-12-07 06:45] LABS: BAND#(MANUAL) 3.22 x10^3/uL; BANDS%(MANUAL) 11 % (0-7); LYMPH#(MANUAL) 2.64 x10^3/uL (1-3.4); LYMPHS% (MANUAL) 9 % (22-44); MONOS#(MANUAL) 0.88 x10^3/uL (0.3-2.7); MONOS% (MANUAL) 3 % (2-9); MYELOCYTES# (MANUAL) 0.59 x10^3/uL (0-0); MYELOCYTES% (MANUAL) 2 % (0-0); NRBC % (MANUAL) 1 % (0-1); SEG#(MANUAL) 21.98 x10^3/uL (1.8-6.8); SEGS% (MANUAL) 75 % (42-75)
[2017-12-07 06:46] LABS: ANISOCYTOSIS 1+; POLYCHROMASIA 1+
[2017-12-07 06:48] LABS: <PLATELET ESTIMATE> ADEQUATE; <PLT MORPHOLOGY> NORMAL PLT MORPH; TOXIC GRAN 1+
[2017-12-07] MEDS: PANTOPRAZOLE 40 MG IV IV SCH (10:04)
[2017-12-07] MEDS: SODIUM CHLORIDE FLUSH 10ML SYR IVF SCH ×2 (10:04→20:50)
[2017-12-07] MEDS: INSULIN REGULAR LOW DOSE QDAY SQ-INSULIN SCH (10:04)
[2017-12-07] MEDS: LINEZOLID PMX 600MG/300ML 300 ML IV SCH ×2 (10:44→22:09)
[2017-12-07] MEDS: MIDAZOLAM HCL 100 MG in SODIUM CHLORIDE 0.9% 230 ML IV PRN (13:36)
[2017-12-07 14:08] LABS: ALBUMIN 1.8 g/dL (3.4-5.0); ANION GAP 13 mmol/L (5-15); CALCIUM 8.6 mg/dL (8.5-10.1); CHLORIDE 104 mmol/L (98-107); CREATININE 2.58 mg/dL (0.7-1.3)
[2017-12-07 14:34] LABS: MD YES
[2017-12-07 14:35] LABS: MEAN CORPUSCULAR HEMOGLOBIN 30.4 pg (27.5-34.5); MEAN CORPUSCULAR HGB CONC 34.4 g/dL (33.2-36.2); MEAN CORPUSCULAR VOLUME 88.4 fL (81-97); MEAN PLATELET VOLUME 8.3 fL (7.4-10.4); PLATELET COUNT 436 x10^3/uL (130-400); RED BLOOD COUNT 2.46 x10^6/uL (4.38-5.82); RED CELL DISTRIBUTION WIDTH 17.9 % (9.4-14.8)
[2017-12-07 14:38] LABS: BAND#(MANUAL) 3.11 x10^3/uL; BANDS%(MANUAL) 10 % (0-7); EOS#(MANUAL) 0.62 x10^3/uL (0.0-0.4); EOS% (MANUAL) 2 % (1-7); LYMPH#(MANUAL) 0.31 x10^3/uL (1-3.4); LYMPHS% (MANUAL) 1 % (22-44); METAMYELOCYTES# (MANUAL) 1.87 x10^3/uL (0-0); METAMYELOCYTES% (MANUAL) 6 % (0-1); MONOS#(MANUAL) 1.24 x10^3/uL (0.3-2.7); MONOS% (MANUAL) 4 % (2-9); MYELOCYTES# (MANUAL) 0.62 x10^3/uL (0-0); MYELOCYTES% (MANUAL) 2 % (0-0); SEG#(MANUAL) 23.33 x10^3/uL (1.8-6.8); SEGS% (MANUAL) 75 % (42-75)
[2017-12-07 14:41] LABS: ANISOCYTOSIS 1+; HYPOCHROMIA 1+
[2017-12-07 14:42] LABS: <PLATELET ESTIMATE> ADEQUATE; <PLT MORPHOLOGY> NORMAL PLT MORPH
[2017-12-07] MEDS ORDERED: STERILE WATER IV SCH ×2 (17:00)
[2017-12-07] MEDS ORDERED: AMINO ACID 10% IV SCH ×2 (17:00)
[2017-12-07] MEDS ORDERED: [UNRECOGNIZED DRUG - OTHER] IV SCH (17:00)
[2017-12-07] MEDS ORDERED: DEXTROSE 70% IV SCH ×2 (17:00)
[2017-12-07] MEDS ORDERED: [UNRECOGNIZED DRUG - OTHER] IV SCH (17:00)
[2017-12-07] MEDS: FILTER, DISP 1.2 MICRON FOR TPN/PVN IV PRN (18:38)
[2017-12-07] MEDS: MEROPENEM 500 MG in SODIUM CHLORIDE 0.9% 100 ML IV SCH (20:12)
[2017-12-07] MEDS: HYDROmorphone 2 MG/ML, 1ML IVPush PRN (21:58)
[2017-12-08] MEDS: MIDAZOLAM HCL 100 MG in SODIUM CHLORIDE 0.9% 230 ML IV PRN ×2 (00:45→11:42)
[2017-12-08 03:09] LABS: MEAN CORPUSCULAR HEMOGLOBIN 30.6 pg (27.5-34.5); MEAN CORPUSCULAR HGB CONC 34.2 g/dL (33.2-36.2); MEAN CORPUSCULAR VOLUME 89.5 fL (81-97); MEAN PLATELET VOLUME 8.5 fL (7.4-10.4); PLATELET COUNT 498 x10^3/uL (130-400); RED BLOOD COUNT 2.57 x10^6/uL (4.38-5.82); RED CELL DISTRIBUTION WIDTH 17.7 % (9.4-14.8)
[2017-12-08 03:21] LABS: ALANINE AMINOTRANSFERASE 94 U/L (12-78); ALBUMIN 1.6 g/dL (3.4-5.0); ANION GAP 16 mmol/L (5-15); CALCIUM 8.1 mg/dL (8.5-10.1); CHLORIDE 105 mmol/L (98-107); CREATININE 2.95 mg/dL (0.7-1.3)
[2017-12-08 03:24] LABS: ALKALINE PHOSPHATASE 108 U/L (45-117); BILIRUBIN,TOTAL 6.3 mg/dL (0.2-1.0); TOTAL PROTEIN 6.6 g/dL (6.4-8.2)
[2017-12-08 03:36] LABS: MD YES
[2017-12-08 03:39] LABS: ANISOCYTOSIS 1+; BAND#(MANUAL) 0.81 x10^3/uL; BANDS%(MANUAL) 3 % (0-7); LYMPH#(MANUAL) 1.62 x10^3/uL (1-3.4); LYMPHS% (MANUAL) 6 % (22-44); METAMYELOCYTES# (MANUAL) 0.54 x10^3/uL (0-0); METAMYELOCYTES% (MANUAL) 2 % (0-1); MONOS% (MANUAL) 10 % (2-9); SEG#(MANUAL) 21.33 x10^3/uL (1.8-6.8); SEGS% (MANUAL) 79 % (42-75)
[2017-12-08 03:40] LABS: <PLATELET ESTIMATE> INCREASED; <PLT MORPHOLOGY> NORMAL PLT MORPH; HYPOCHROMIA 1+; POLYCHROMASIA 1+
[2017-12-08 04:30] VITALS: BP 133/83
[2017-12-08] MEDS: SODIUM CHLORIDE FLUSH 10ML SYR IVF SCH ×2 (09:40→22:06)
[2017-12-08] MEDS: INSULIN REGULAR LOW DOSE QDAY SQ-INSULIN SCH (09:40)
[2017-12-08] MEDS: PANTOPRAZOLE 40 MG IV IV SCH (09:40)
[2017-12-08] MEDS: HEPARIN 5,000 UNITS/ML, 1ML SQ SCH ×2 (09:40→20:11)
[2017-12-08] MEDS: SODIUM CHLORIDE 0.9% IV PRN (11:42)
[2017-12-08] MEDS: DEXMEDETOMIDINE IV PRN (11:42)
[2017-12-08] MEDS: LINEZOLID PMX 600MG/300ML 300 ML IV SCH ×2 (11:43→22:07)
[2017-12-08] MEDS: FENTANYL PF 2,500 MCG in SODIUM CHLORIDE 0.9% 200 ML IV PRN (16:46)
[2017-12-08] MEDS ORDERED: DEXTROSE 70% IV SCH (17:00)
[2017-12-08] MEDS ORDERED: AMINO ACID 10% IV SCH (17:00)
[2017-12-08] MEDS ORDERED: [UNRECOGNIZED DRUG - OTHER] IV SCH (17:00)
[2017-12-08] MEDS ORDERED: STERILE WATER IV SCH (17:00)
[2017-12-08] MEDS: FILTER, DISP 1.2 MICRON FOR TPN/PVN IV PRN (17:36)
[2017-12-08] MEDS: MEROPENEM 500 MG in SODIUM CHLORIDE 0.9% 100 ML IV SCH (19:57)
[2017-12-09] MEDS: MIDAZOLAM HCL 100 MG in SODIUM CHLORIDE 0.9% 230 ML IV PRN ×3 (00:09→19:02)
[2017-12-09] MEDS: SODIUM CHLORIDE 0.9% IV PRN ×2 (04:44→17:46)
[2017-12-09] MEDS: DEXMEDETOMIDINE IV PRN ×2 (04:44→17:46)
[2017-12-09 04:45] VITALS: BP 109/82
[2017-12-09] MEDS: FENTANYL PF 2,500 MCG in SODIUM CHLORIDE 0.9% 200 ML IV PRN ×2 (04:45→23:57)
[2017-12-09 05:24] LABS: ALANINE AMINOTRANSFERASE 77 U/L (12-78); ALBUMIN 1.6 g/dL (3.4-5.0); ANION GAP 12 mmol/L (5-15); CALCIUM 8.5 mg/dL (8.5-10.1); CHLORIDE 100 mmol/L (98-107); CREATININE 3.08 mg/dL (0.7-1.3)
[2017-12-09 05:27] LABS: ALKALINE PHOSPHATASE 116 U/L (45-117); BILIRUBIN,TOTAL 4.7 mg/dL (0.2-1.0); PREALBUMIN 9.4 mg/dL (20.0-40.0); TOTAL PROTEIN 6.7 g/dL (6.4-8.2)
[2017-12-09 05:41] LABS: MEAN CORPUSCULAR HEMOGLOBIN 31.7 pg (27.5-34.5); MEAN CORPUSCULAR HGB CONC 34.5 g/dL (33.2-36.2); MEAN CORPUSCULAR VOLUME 91.8 fL (81-97); MEAN PLATELET VOLUME 8.6 fL (7.4-10.4); PLATELET COUNT 684 x10^3/uL (130-400); RED BLOOD COUNT 2.32 x10^6/uL (4.38-5.82); RED CELL DISTRIBUTION WIDTH 17.4 % (9.4-14.8)
[2017-12-09 06:01] LABS: MD YES
[2017-12-09 06:08] LABS: BAND#(MANUAL) 1.29 x10^3/uL; BANDS%(MANUAL) 4 % (0-7); EOS#(MANUAL) 0.32 x10^3/uL (0.0-0.4); EOS% (MANUAL) 1 % (1-7); LYMPH#(MANUAL) 1.94 x10^3/uL (1-3.4); LYMPHS% (MANUAL) 6 % (22-44); METAMYELOCYTES# (MANUAL) 0.65 x10^3/uL (0-0); METAMYELOCYTES% (MANUAL) 2 % (0-1); MONOS#(MANUAL) 2.26 x10^3/uL (0.3-2.7); MONOS% (MANUAL) 7 % (2-9); SEG#(MANUAL) 25.84 x10^3/uL (1.8-6.8); SEGS% (MANUAL) 80 % (42-75)
[2017-12-09 06:09] LABS: <PLATELET ESTIMATE> INCREASED; ANISOCYTOSIS 1+
[2017-12-09 06:10] LABS: LARGE PLATELETS 1+; POLYCHROMASIA 1+
[2017-12-09 06:11] LABS: MICROCYTOSIS 1+
[2017-12-09 06:14] LABS: SPHEROCYTES 1+
[2017-12-09] MEDS: INSULIN REGULAR LOW DOSE QDAY SQ-INSULIN SCH (07:27)
[2017-12-09] MEDS: PANTOPRAZOLE 40 MG IV IV SCH (07:29)
[2017-12-09] MEDS: HYDROmorphone 2 MG/ML, 1ML IVPush PRN ×3 (07:30→20:25)
[2017-12-09] MEDS: HEPARIN 5,000 UNITS/ML, 1ML SQ SCH ×2 (07:30→20:25)
[2017-12-09] MEDS: SODIUM CHLORIDE FLUSH 10ML SYR IVF SCH ×2 (07:37→20:25)
[2017-12-09] MEDS: LINEZOLID PMX 600MG/300ML 300 ML IV SCH ×2 (10:47→23:57)
[2017-12-09 11:16] LABS: TROPONIN I < 0.015 ng/mL (0.000-0.045)
[2017-12-09] MEDS: ALBUMIN HUMAN 25% 100 ML IV PRN ×2 (14:04→14:45)
[2017-12-09] MEDS ORDERED: DEXTROSE 70% IV SCH (17:00)
[2017-12-09] MEDS ORDERED: SODIUM ACETATE IV SCH (17:00)
[2017-12-09] MEDS ORDERED: AMINO ACID 10% IV SCH (17:00)
[2017-12-09] MEDS ORDERED: [UNRECOGNIZED DRUG - OTHER] IV SCH (17:00)
[2017-12-09] MEDS: FILTER, DISP 1.2 MICRON FOR TPN/PVN IV PRN (17:45)
[2017-12-09] MEDS: NOREPINEPHRINE 16 MG in SODIUM CHLORIDE 0.9% 234 ML IV PRN (19:02)
[2017-12-09] MEDS: MEROPENEM 500 MG in SODIUM CHLORIDE 0.9% 100 ML IV SCH (20:25)
[2017-12-10] MEDS: HYDROmorphone 2 MG/ML, 1ML IVPush PRN ×4 (01:07→20:25)
[2017-12-10] MEDS: MIDAZOLAM HCL 100 MG in SODIUM CHLORIDE 0.9% 230 ML IV PRN (03:42)
[2017-12-10 03:43] VITALS: BP 102/54
[2017-12-10 05:52] LABS: MEAN CORPUSCULAR HEMOGLOBIN 30.8 pg (27.5-34.5); MEAN CORPUSCULAR HGB CONC 34.3 g/dL (33.2-36.2); MEAN CORPUSCULAR VOLUME 89.9 fL (81-97); MEAN PLATELET VOLUME 8.2 fL (7.4-10.4); PLATELET COUNT 845 x10^3/uL (130-400); RED BLOOD COUNT 2.26 x10^6/uL (4.38-5.82); RED CELL DISTRIBUTION WIDTH 17.7 % (9.4-14.8)
[2017-12-10 05:56] LABS: CHLORIDE 100 mmol/L (98-107)
[2017-12-10 06:04] LABS: ANION GAP 12 mmol/L (5-15); CALCIUM 8.4 mg/dL (8.5-10.1); CREATININE 3.49 mg/dL (0.7-1.3)
[2017-12-10 06:08] LABS: TRIGLYCERIDES 370 mg/dL (50-200)
[2017-12-10 06:09] LABS: MD YES
[2017-12-10 06:12] LABS: BAND#(MANUAL) 1.06 x10^3/uL; BANDS%(MANUAL) 4 % (0-7); EOS#(MANUAL) 0.27 x10^3/uL (0.0-0.4); EOS% (MANUAL) 1 % (1-7); LYMPH#(MANUAL) 1.86 x10^3/uL (1-3.4); LYMPHS% (MANUAL) 7 % (22-44); METAMYELOCYTES# (MANUAL) 0.53 x10^3/uL (0-0); METAMYELOCYTES% (MANUAL) 2 % (0-1); MONOS#(MANUAL) 1.06 x10^3/uL (0.3-2.7); MONOS% (MANUAL) 4 % (2-9); MYELOCYTES# (MANUAL) 0.27 x10^3/uL (0-0); MYELOCYTES% (MANUAL) 1 % (0-0); SEG#(MANUAL) 21.47 x10^3/uL (1.8-6.8); SEGS% (MANUAL) 81 % (42-75)
[2017-12-10 06:14] LABS: ANISOCYTOSIS 1+; POLYCHROMASIA 1+
[2017-12-10 06:15] LABS: MICROCYTOSIS 1+
[2017-12-10 06:16] LABS: <PLATELET ESTIMATE> INCREASED; LARGE PLATELETS 1+
[2017-12-10] MEDS: INSULIN REGULAR LOW DOSE QDAY SQ-INSULIN SCH (07:31)
[2017-12-10] MEDS: HEPARIN 5,000 UNITS/ML, 1ML SQ SCH ×2 (07:49→20:25)
[2017-12-10] MEDS: SODIUM CHLORIDE FLUSH 10ML SYR IVF SCH ×2 (07:49→20:25)
[2017-12-10] MEDS: ERGOCALCIFEROL 50,000 UNIT CAPSULE PO SCH (07:49)
[2017-12-10] MEDS: PANTOPRAZOLE 40 MG IV IV SCH (07:49)
[2017-12-10] MEDS ORDERED: DIAZEPAM 5 MG/ML, 2ML IV SCH (09:00)
[2017-12-10] MEDS ORDERED: VECURONIUM 10 MG IVPush ONE (11:00)
[2017-12-10] MEDS ORDERED: MIDAZOLAM 1 MG/ML, 5ML ONE (11:07)
[2017-12-10] MEDS ORDERED: FENTANYL PF 100 MCG/2ML ONE ×2 (11:10→12:30)
[2017-12-10] MEDS ORDERED: VECURONIUM 10 MG ONE (11:12)
[2017-12-10] MEDS ORDERED: FENTANYL PF 250 MCG/5ML IV PRN (11:30)
[2017-12-10] MEDS ORDERED: MIDAZOLAM 1 MG/ML, 5ML IVPush ONE (11:30)
[2017-12-10] MEDS ORDERED: METOPROLOL 1 MG/ML, 5ML ONE (12:46)
[2017-12-10] MEDS: LINEZOLID PMX 600MG/300ML 300 ML IV SCH ×2 (12:46→22:56)
[2017-12-10] MEDS ORDERED: LIDOCAINE 1%, 20ML ONE (12:55)
[2017-12-10] MEDS ORDERED: METOPROLOL 1 MG/ML, 5ML IVPush ONE (13:00)
[2017-12-10 15:25] LABS: ALANINE AMINOTRANSFERASE 58 U/L (12-78); ALBUMIN 1.9 g/dL (3.4-5.0)
[2017-12-10 15:27] LABS: ALKALINE PHOSPHATASE 117 U/L (45-117); BILIRUBIN,TOTAL 5.2 mg/dL (0.2-1.0)
[2017-12-10] MEDS ORDERED: DIAZEPAM 5 MG/ML, 10ML VIAL IV SCH (16:00)
[2017-12-10 16:04] LABS: CELLS COUNTED 67
[2017-12-10] MEDS: DIAZEPAM 5 MG/ML, 2ML IV SCH ×2 (16:25→20:25)
[2017-12-10] MEDS ORDERED: DEXTROSE 70% IV SCH (17:00)
[2017-12-10] MEDS ORDERED: [UNRECOGNIZED DRUG - OTHER] IV SCH (17:00)
[2017-12-10] MEDS ORDERED: AMINO ACID 10% IV SCH (17:00)
[2017-12-10] MEDS ORDERED: FAT EMULSIONS IV SCH (17:00)
[2017-12-10] MEDS: MEROPENEM 500 MG in SODIUM CHLORIDE 0.9% 100 ML IV SCH (20:25)
[2017-12-10] MEDS: FENTANYL PF 2,500 MCG in SODIUM CHLORIDE 0.9% 200 ML IV PRN (23:17)
[2017-12-11] MEDS: DIAZEPAM 5 MG/ML, 2ML IV SCH ×3 (00:12→07:36)
[2017-12-11] MEDS: HYDROmorphone 2 MG/ML, 1ML IVPush PRN ×5 (00:12→21:53)
[2017-12-11 04:22] VITALS: BP 89/46
[2017-12-11 05:47] LABS: ANION GAP 12 mmol/L (5-15); CALCIUM 8.8 mg/dL (8.5-10.1); CHLORIDE 99 mmol/L (98-107); CREATININE 3.83 mg/dL (0.7-1.3)
[2017-12-11 06:39] LABS: MEAN CORPUSCULAR HEMOGLOBIN 30.6 pg (27.5-34.5); MEAN CORPUSCULAR HGB CONC 34.6 g/dL (33.2-36.2); MEAN CORPUSCULAR VOLUME 88.5 fL (81-97); RED BLOOD COUNT 1.97 x10^6/uL (4.38-5.82); RED CELL DISTRIBUTION WIDTH 17.1 % (9.4-14.8)
[2017-12-11] MEDS: INSULIN REGULAR LOW DOSE QDAY SQ-INSULIN SCH (07:21)
[2017-12-11] MEDS: HEPARIN 5,000 UNITS/ML, 1ML SQ SCH ×2 (07:36→20:49)
[2017-12-11] MEDS: SODIUM CHLORIDE FLUSH 10ML SYR IVF SCH ×2 (07:37→21:03)
[2017-12-11] MEDS: PANTOPRAZOLE 40 MG IV IV SCH (07:41)
[2017-12-11 07:47] LABS: MD YES
[2017-12-11 07:48] LABS: MEAN PLATELET VOLUME 7.6 fL (7.4-10.4)
[2017-12-11 08:01] LABS: ANISOCYTOSIS 1+; LYMPH#(MANUAL) 4.66 x10^3/uL (1-3.4); LYMPHS% (MANUAL) 20 % (22-44); MICROCYTOSIS 1+; MONOS% (MANUAL) 6 % (2-9); SEG#(MANUAL) 17.24 x10^3/uL (1.8-6.8); SEGS% (MANUAL) 74 % (42-75)
[2017-12-11 08:02] LABS: <PLATELET ESTIMATE> INCREASED; <PLT MORPHOLOGY> NORMAL PLT MORPH; HYPOCHROMIA 2+; POLYCHROMASIA 1+
[2017-12-11 08:07] LABS: PLATELET COUNT 1014 x10^3/uL (130-400)
[2017-12-11] MEDS ORDERED: ROCURONIUM 10 MG/ML,10ML ONE (11:48)
[2017-12-11] MEDS ORDERED: PROPOFOL 10 MG/ML, 20ML ONE (11:48)
[2017-12-11] MEDS ORDERED: DIAZEPAM 5 MG/ML, 2ML IV SCH (12:00)
[2017-12-11] MEDS: LINEZOLID PMX 600MG/300ML 300 ML IV SCH ×2 (12:12→23:22)
[2017-12-11] MEDS: MIDAZOLAM HCL 100 MG in SODIUM CHLORIDE 0.9% 230 ML IV PRN (12:18)
[2017-12-11] MEDS: DIAZEPAM 5 MG/ML, 10ML VIAL IV SCH ×3 (12:30→21:03)
[2017-12-11] MEDS ORDERED: OMNIPAQUE 350 MG/ML, 50 ML BOTTLE ONE (12:58)
[2017-12-11] MEDS ORDERED: LIDOCAINE 1%, 20ML ONE (13:14)
[2017-12-11 14:19] VITALS: BP 106/59
[2017-12-11 14:32] VITALS: BP 130/79
[2017-12-11 14:45] VITALS: BP 136/83
[2017-12-11] MEDS ORDERED: DEXTROSE 70% IV SCH (17:00)
[2017-12-11] MEDS ORDERED: AMINO ACID 10% IV SCH (17:00)
[2017-12-11] MEDS ORDERED: [UNRECOGNIZED DRUG - OTHER] IV SCH (17:00)
[2017-12-11] MEDS ORDERED: SODIUM CHLORIDE IV SCH (17:00)
[2017-12-11] MEDS: FILTER, DISP 1.2 MICRON FOR TPN/PVN IV PRN (17:26)
[2017-12-11] MEDS: SODIUM CHLORIDE 0.9% IV PRN (17:27)
[2017-12-11] MEDS: DEXMEDETOMIDINE IV PRN (17:27)
[2017-12-11] MEDS: MEROPENEM 500 MG in SODIUM CHLORIDE 0.9% 100 ML IV SCH (20:49)
[2017-12-11] MEDS: FENTANYL PF 2,500 MCG in SODIUM CHLORIDE 0.9% 200 ML IV PRN (21:06)
[2017-12-11] MEDS: DIAZEPAM 5 MG/ML, 2ML IVPush PRN (23:22)
[2017-12-12] MEDS: DIAZEPAM 5 MG/ML, 10ML VIAL IV SCH ×7 (00:45→23:48)
[2017-12-12] MEDS: MIDAZOLAM HCL 100 MG in SODIUM CHLORIDE 0.9% 230 ML IV PRN ×2 (00:45→23:48)
[2017-12-12 03:40] VITALS: BP 117/55
[2017-12-12] MEDS: HYDROmorphone 2 MG/ML, 1ML IVPush PRN ×5 (03:41→21:19)
[2017-12-12] MEDS: DEXMEDETOMIDINE IV PRN ×2 (05:21→21:07)
[2017-12-12] MEDS: SODIUM CHLORIDE 0.9% IV PRN ×2 (05:21→21:07)
[2017-12-12 05:41] LABS: MEAN CORPUSCULAR HEMOGLOBIN 30.8 pg (27.5-34.5); MEAN CORPUSCULAR HGB CONC 34.1 g/dL (33.2-36.2); MEAN CORPUSCULAR VOLUME 90.3 fL (81-97); MEAN PLATELET VOLUME 7.6 fL (7.4-10.4); RED BLOOD COUNT 2.63 x10^6/uL (4.38-5.82); RED CELL DISTRIBUTION WIDTH 17.7 % (9.4-14.8)
[2017-12-12 05:44] LABS: PLATELET COUNT 1085 x10^3/uL (130-400)
[2017-12-12 05:45] LABS: ANION GAP 17 mmol/L (5-15); CALCIUM 7.9 mg/dL (8.5-10.1); CHLORIDE 98 mmol/L (98-107)
[2017-12-12 05:50] LABS: CREATININE 5.78 mg/dL (0.7-1.3)
[2017-12-12] MEDS: DIAZEPAM 5 MG/ML, 2ML IVPush PRN (06:00)
[2017-12-12 06:01] LABS: MD YES
[2017-12-12 06:03] LABS: BAND#(MANUAL) 1.17 x10^3/uL; BANDS%(MANUAL) 5 % (0-7); BASOS#(MANUAL) 0.23 x10^3/uL (0-0.1); BASOS% (MANUAL) 1 % (0-1); EOS#(MANUAL) 0.23 x10^3/uL (0.0-0.4); EOS% (MANUAL) 1 % (1-7); LYMPHS% (MANUAL) 9 % (22-44); METAMYELOCYTES# (MANUAL) 0.93 x10^3/uL (0-0); METAMYELOCYTES% (MANUAL) 4 % (0-1); MONOS#(MANUAL) 0.93 x10^3/uL (0.3-2.7); MONOS% (MANUAL) 4 % (2-9); NRBC % (MANUAL) 1 % (0-1); SEG#(MANUAL) 17.71 x10^3/uL (1.8-6.8); SEGS% (MANUAL) 76 % (42-75)
[2017-12-12 06:04] LABS: ANISOCYTOSIS 1+; HYPOCHROMIA 1+; MICROCYTOSIS 1+; POLYCHROMASIA 1+
[2017-12-12 06:05] LABS: <PLATELET ESTIMATE> INCREASED; <PLT MORPHOLOGY> NORMAL PLT MORPH
[2017-12-12 08:25] LABS: ALBUMIN 2.3 g/dL (3.4-5.0); BILIRUBIN, DIRECT 4.6 mg/dL (0.1-0.2)
[2017-12-12 08:27] LABS: BILIRUBIN,INDIRECT 1.1 mg/dL (0.0-2.0); BILIRUBIN,TOTAL 5.7 mg/dL (0.2-1.0); TOTAL PROTEIN 7.6 g/dL (6.4-8.2)
[2017-12-12] MEDS: INSULIN REGULAR LOW DOSE QDAY SQ-INSULIN SCH (09:00)
[2017-12-12] MEDS: HEPARIN 5,000 UNITS/ML, 1ML SQ SCH ×2 (09:04→20:34)
[2017-12-12] MEDS: PANTOPRAZOLE 40 MG IV IV SCH (09:59)
[2017-12-12] MEDS: SODIUM CHLORIDE FLUSH 10ML SYR IVF SCH ×2 (09:59→20:35)
[2017-12-12] MEDS: LINEZOLID PMX 600MG/300ML 300 ML IV SCH ×2 (11:34→23:48)
[2017-12-12] MEDS ORDERED: [UNRECOGNIZED DRUG - OTHER] IV SCH ×2 (17:00)
[2017-12-12] MEDS ORDERED: DEXTROSE 70% IV SCH ×2 (17:00)
[2017-12-12] MEDS ORDERED: AMINO ACID 10% IV SCH ×2 (17:00)
[2017-12-12] MEDS ORDERED: FAT EMULSIONS IV SCH ×2 (17:00)
[2017-12-12] MEDS: FENTANYL PF 2,500 MCG in SODIUM CHLORIDE 0.9% 200 ML IV PRN (18:06)
[2017-12-12] MEDS: FILTER, DISP 1.2 MICRON FOR TPN/PVN IV PRN (18:10)
[2017-12-12] MEDS ORDERED: BISACODYL 10 MG SUPP PR PRN (20:30)
[2017-12-12] MEDS: MEROPENEM 500 MG in SODIUM CHLORIDE 0.9% 100 ML IV SCH (20:34)
[2017-12-12] MEDS: ACETAMINOPHEN 650 MG SUPP PR PRN (20:35)
[2017-12-13] MEDS: DIAZEPAM 5 MG/ML, 2ML IVPush PRN (04:24)
[2017-12-13] MEDS: DIAZEPAM 5 MG/ML, 10ML VIAL IV SCH ×5 (04:25→20:00)
[2017-12-13 04:28] VITALS: BP 104/79
[2017-12-13 05:09] LABS: ANION GAP 17 mmol/L (5-15); CHLORIDE 98 mmol/L (98-107)
[2017-12-13 05:16] LABS: ALANINE AMINOTRANSFERASE 58 U/L (12-78); ALKALINE PHOSPHATASE 136 U/L (45-117); BILIRUBIN,TOTAL 4.7 mg/dL (0.2-1.0); CREATININE 7.53 mg/dL (0.7-1.3); TOTAL PROTEIN 7.1 g/dL (6.4-8.2); TRIGLYCERIDES 319 mg/dL (50-200)
[2017-12-13 05:19] LABS: MEAN CORPUSCULAR HEMOGLOBIN 30.8 pg (27.5-34.5); MEAN CORPUSCULAR HGB CONC 34.1 g/dL (33.2-36.2); MEAN CORPUSCULAR VOLUME 90.2 fL (81-97); MEAN PLATELET VOLUME 7.6 fL (7.4-10.4); RED BLOOD COUNT 2.28 x10^6/uL (4.38-5.82); RED CELL DISTRIBUTION WIDTH 17.1 % (9.4-14.8)
[2017-12-13 05:22] LABS: PLATELET COUNT 1073 x10^3/uL (130-400)
[2017-12-13 05:42] LABS: MD YES
[2017-12-13 05:45] LABS: <PLATELET ESTIMATE> INCREASED; <PLT MORPHOLOGY> NORMAL PLT MORPH; ANISOCYTOSIS 1+; BAND#(MANUAL) 0.71 x10^3/uL; BANDS%(MANUAL) 3 % (0-7); EOS#(MANUAL) 0.24 x10^3/uL (0.0-0.4); EOS% (MANUAL) 1 % (1-7); HYPOCHROMIA 1+; LYMPH#(MANUAL) 1.18 x10^3/uL (1-3.4); LYMPHS% (MANUAL) 5 % (22-44); METAMYELOCYTES# (MANUAL) 0.47 x10^3/uL (0-0); METAMYELOCYTES% (MANUAL) 2 % (0-1); MONOS#(MANUAL) 2.12 x10^3/uL (0.3-2.7); MONOS% (MANUAL) 9 % (2-9); MYELOCYTES# (MANUAL) 0.47 x10^3/uL (0-0); MYELOCYTES% (MANUAL) 2 % (0-0); POLYCHROMASIA 1+; SEG#(MANUAL) 18.33 x10^3/uL (1.8-6.8); SEGS% (MANUAL) 78 % (42-75)
[2017-12-13 05:46] LABS: MICROCYTOSIS 1+
[2017-12-13] MEDS: ERGOCALCIFEROL 50,000 UNIT CAPSULE PO SCH (08:30)
[2017-12-13] MEDS: INSULIN REGULAR LOW DOSE QDAY SQ-INSULIN SCH (09:00)
[2017-12-13] MEDS: HEPARIN 5,000 UNITS/ML, 1ML SQ SCH ×2 (09:11→21:13)
[2017-12-13] MEDS: SODIUM CHLORIDE FLUSH 10ML SYR IVF SCH ×2 (09:11→21:00)
[2017-12-13] MEDS: PANTOPRAZOLE 40 MG IV IV SCH (09:11)
[2017-12-13] MEDS: METHYLNALTREXONE 12 MG/0.6 ML SQ SCH (09:43)
[2017-12-13] MEDS: SODIUM CHLORIDE 0.9% IV PRN (12:06)
[2017-12-13] MEDS: MIDAZOLAM HCL 100 MG in SODIUM CHLORIDE 0.9% 230 ML IV PRN (12:06)
[2017-12-13] MEDS: DEXMEDETOMIDINE IV PRN (12:06)
[2017-12-13] MEDS: ALBUMIN HUMAN 25% 100 ML IV PRN (12:52)
[2017-12-13] MEDS: LINEZOLID PMX 600MG/300ML 300 ML IV SCH ×2 (14:38→23:33)
[2017-12-13] MEDS: FENTANYL PF 2,500 MCG in SODIUM CHLORIDE 0.9% 200 ML IV PRN (14:58)
[2017-12-13] MEDS ORDERED: DEXTROSE 70% IV SCH (17:00)
[2017-12-13] MEDS ORDERED: AMINO ACID 10% IV SCH (17:00)
[2017-12-13] MEDS ORDERED: SODIUM CHLORIDE IV SCH (17:00)
[2017-12-13] MEDS ORDERED: [UNRECOGNIZED DRUG - OTHER] IV SCH (17:00)
[2017-12-13] MEDS: FILTER, DISP 1.2 MICRON FOR TPN/PVN IV PRN (18:44)
[2017-12-13] MEDS: MEROPENEM 500 MG in SODIUM CHLORIDE 0.9% 100 ML IV SCH (20:19)
[2017-12-14] VITALS (9 sets, daily range): BP systolic 110–128; BP diastolic 60–73
[2017-12-14] MEDS: HYDROmorphone 2 MG/ML, 1ML IVPush PRN ×2 (00:17→04:13)
[2017-12-14] MEDS: MIDAZOLAM HCL 100 MG in SODIUM CHLORIDE 0.9% 230 ML IV PRN ×2 (00:21→12:05)
[2017-12-14] MEDS: DIAZEPAM 5 MG/ML, 10ML VIAL IV SCH ×3 (00:45→07:51)
[2017-12-14] MEDS: DEXMEDETOMIDINE IV PRN ×2 (03:15→17:17)
[2017-12-14] MEDS: SODIUM CHLORIDE 0.9% IV PRN ×2 (03:15→17:17)
[2017-12-14 04:44] LABS: MEAN CORPUSCULAR HEMOGLOBIN 30.6 pg (27.5-34.5); MEAN CORPUSCULAR HGB CONC 33.9 g/dL (33.2-36.2); MEAN CORPUSCULAR VOLUME 90.2 fL (81-97); MEAN PLATELET VOLUME 7.6 fL (7.4-10.4); RED BLOOD COUNT 2.24 x10^6/uL (4.38-5.82); RED CELL DISTRIBUTION WIDTH 16.9 % (9.4-14.8)
[2017-12-14 04:46] LABS: PLATELET COUNT 1053 x10^3/uL (130-400)
[2017-12-14 04:49] LABS: MD YES
[2017-12-14 04:57] LABS: ANISOCYTOSIS 1+; BAND#(MANUAL) 1.17 x10^3/uL; BANDS%(MANUAL) 5 % (0-7); LYMPHS% (MANUAL) 6 % (22-44); MONOS#(MANUAL) 1.86 x10^3/uL (0.3-2.7); MONOS% (MANUAL) 8 % (2-9); MYELOCYTES% (MANUAL) 3 % (0-0); SEG#(MANUAL) 18.17 x10^3/uL (1.8-6.8); SEGS% (MANUAL) 78 % (42-75)
[2017-12-14 04:58] LABS: <PLATELET ESTIMATE> INCREASED; <PLT MORPHOLOGY> NORMAL PLT MORPH; HYPOCHROMIA 1+; MICROCYTOSIS 1+; POLYCHROMASIA 1+
[2017-12-14] MEDS: HEPARIN 5,000 UNITS/ML, 1ML SQ SCH ×2 (07:50→21:19)
[2017-12-14] MEDS: ACETAMINOPHEN 650 MG SUPP PR PRN (07:50)
[2017-12-14] MEDS: DIAZEPAM 5 MG/ML, 2ML IVPush PRN (07:51)
[2017-12-14] MEDS: PANTOPRAZOLE 40 MG IV IV SCH (07:51)
[2017-12-14] MEDS: DIAZEPAM 5 MG/ML, 2ML IV SCH ×3 (08:56→17:00)
[2017-12-14] MEDS: INSULIN REGULAR LOW DOSE QDAY SQ-INSULIN SCH (08:56)
[2017-12-14 08:58] LABS: ALANINE AMINOTRANSFERASE 56 U/L (12-78); ALBUMIN 2.2 g/dL (3.4-5.0); ANION GAP 13 mmol/L (5-15); CALCIUM 8.7 mg/dL (8.5-10.1); CHLORIDE 100 mmol/L (98-107); CREATININE 6.23 mg/dL (0.7-1.3)
[2017-12-14 09:00] LABS: ALKALINE PHOSPHATASE 144 U/L (45-117); BILIRUBIN,TOTAL 5.3 mg/dL (0.2-1.0); TOTAL PROTEIN 8.1 g/dL (6.4-8.2)
[2017-12-14] MEDS: FENTANYL PF 2,500 MCG in SODIUM CHLORIDE 0.9% 200 ML IV PRN (09:24)
[2017-12-14] MEDS: SODIUM CHLORIDE FLUSH 10ML SYR IVF SCH ×2 (09:24→21:19)
[2017-12-14] MEDS: LINEZOLID PMX 600MG/300ML 300 ML IV SCH (15:02)
[2017-12-14] MEDS ORDERED: AMINO ACID 10% IV SCH (17:00)
[2017-12-14] MEDS ORDERED: FAT EMULSIONS IV SCH (17:00)
[2017-12-14] MEDS ORDERED: DEXTROSE 70% IV SCH (17:00)
[2017-12-14] MEDS ORDERED: [UNRECOGNIZED DRUG - OTHER] IV SCH (17:00)
[2017-12-14] MEDS: MEROPENEM 500 MG in SODIUM CHLORIDE 0.9% 100 ML IV SCH (20:11)
[2017-12-14] MEDS: DIAZEPAM 5 MG/ML, 10ML VIAL IVPush SCH (21:20)
[2017-12-15] MEDS: DIAZEPAM 5 MG/ML, 10ML VIAL IVPush SCH ×2 (00:49→04:47)
[2017-12-15] MEDS: MIDAZOLAM HCL 100 MG in SODIUM CHLORIDE 0.9% 230 ML IV PRN ×3 (01:37→22:20)
[2017-12-15] MEDS: LINEZOLID PMX 600MG/300ML 300 ML IV SCH ×2 (03:26→14:35)
[2017-12-15 04:00] VITALS: BP 116/58
[2017-12-15 04:36] LABS: MEAN CORPUSCULAR HEMOGLOBIN 30.3 pg (27.5-34.5); MEAN CORPUSCULAR HGB CONC 33.9 g/dL (33.2-36.2); MEAN CORPUSCULAR VOLUME 89.3 fL (81-97); PLATELET COUNT 763 x10^3/uL (130-400); RED BLOOD COUNT 2.47 x10^6/uL (4.38-5.82); RED CELL DISTRIBUTION WIDTH 16.7 % (9.4-14.8)
[2017-12-15 04:39] LABS: ALANINE AMINOTRANSFERASE 36 U/L (12-78); ALBUMIN 1.5 g/dL (3.4-5.0); ANION GAP 12 mmol/L (5-15); CALCIUM 6.8 mg/dL (8.5-10.1); CHLORIDE 106 mmol/L (98-107); CREATININE 3.89 mg/dL (0.7-1.3)
[2017-12-15 04:41] LABS: ALKALINE PHOSPHATASE 101 U/L (45-117); BILIRUBIN,TOTAL 3.6 mg/dL (0.2-1.0); TOTAL PROTEIN 6.2 g/dL (6.4-8.2)
[2017-12-15 04:59] LABS: MD YES
[2017-12-15 05:02] LABS: BAND#(MANUAL) 0.81 x10^3/uL; BANDS%(MANUAL) 4 % (0-7); LYMPHS% (MANUAL) 2 % (22-44); METAMYELOCYTES# (MANUAL) 0.61 x10^3/uL (0-0); METAMYELOCYTES% (MANUAL) 3 % (0-1); MONOS#(MANUAL) 1.01 x10^3/uL (0.3-2.7); MONOS% (MANUAL) 5 % (2-9); MYELOCYTES% (MANUAL) 1 % (0-0); SEG#(MANUAL) 17.17 x10^3/uL (1.8-6.8); SEGS% (MANUAL) 85 % (42-75)
[2017-12-15 05:03] LABS: <PLATELET ESTIMATE> INCREASED; <PLT MORPHOLOGY> NORMAL PLT MORPH; ANISOCYTOSIS 1+; HYPOCHROMIA 1+; MICROCYTOSIS 1+; POLYCHROMASIA 1+
[2017-12-15] MEDS: FENTANYL PF 2,500 MCG in SODIUM CHLORIDE 0.9% 200 ML IV PRN ×2 (05:08→23:42)
[2017-12-15] MEDS ORDERED: MAGNESIUM SULFATE PMX 4GM/100M 100 ML IV ONE (07:30)
[2017-12-15] MEDS: PANTOPRAZOLE 40 MG IV IV SCH (08:43)
[2017-12-15] MEDS: METHYLNALTREXONE 12 MG/0.6 ML SQ SCH (08:43)
[2017-12-15] MEDS: HEPARIN 5,000 UNITS/ML, 1ML SQ SCH ×2 (08:43→20:49)
[2017-12-15] MEDS: SODIUM CHLORIDE FLUSH 10ML SYR IVF SCH ×2 (08:43→20:49)
[2017-12-15] MEDS: DIAZEPAM 5 MG/ML, 10ML VIAL IV SCH ×4 (09:18→20:49)
[2017-12-15] MEDS: SODIUM CHLORIDE 0.9% IV PRN ×2 (09:44→22:19)
[2017-12-15] MEDS: DEXMEDETOMIDINE IV PRN ×2 (09:44→22:19)
[2017-12-15] MEDS: INSULIN REGULAR LOW DOSE QDAY SQ-INSULIN SCH (09:47)
[2017-12-15] MEDS: ZIPRASIDONE 20 MG INJ IM SCH ×3 (10:59→22:16)
[2017-12-15] MEDS: HYDROmorphone 2 MG/ML, 1ML IVPush PRN (16:45)
[2017-12-15] MEDS ORDERED: [UNRECOGNIZED DRUG - OTHER] IV SCH (17:00)
[2017-12-15] MEDS ORDERED: DEXTROSE 70% IV SCH (17:00)
[2017-12-15] MEDS ORDERED: AMINO ACID 10% IV SCH (17:00)
[2017-12-15] MEDS ORDERED: FAT EMULSIONS IV SCH (17:00)
[2017-12-15] MEDS: FILTER, DISP 1.2 MICRON FOR TPN/PVN IV PRN (18:32)
[2017-12-15] MEDS: MEROPENEM 500 MG in SODIUM CHLORIDE 0.9% 100 ML IV SCH (20:49)
[2017-12-16] MEDS: DIAZEPAM 5 MG/ML, 10ML VIAL IV SCH ×6 (00:42→21:11)
[2017-12-16] MEDS: LINEZOLID PMX 600MG/300ML 300 ML IV SCH ×2 (03:06→16:48)
[2017-12-16] MEDS: ZIPRASIDONE 20 MG INJ IM SCH ×4 (04:03→21:12)
[2017-12-16 06:47] LABS: MEAN CORPUSCULAR HEMOGLOBIN 29.7 pg (27.5-34.5); MEAN CORPUSCULAR HGB CONC 33.9 g/dL (33.2-36.2); MEAN CORPUSCULAR VOLUME 87.6 fL (81-97); MEAN PLATELET VOLUME 7.2 fL (7.4-10.4); PLATELET COUNT 827 x10^3/uL (130-400); RED BLOOD COUNT 2.87 x10^6/uL (4.38-5.82); RED CELL DISTRIBUTION WIDTH 16.6 % (9.4-14.8)
[2017-12-16 07:21] LABS: ALANINE AMINOTRANSFERASE 43 U/L (12-78); ALBUMIN 1.8 g/dL (3.4-5.0); ANION GAP 12 mmol/L (5-15); CALCIUM 8.3 mg/dL (8.5-10.1); CHLORIDE 100 mmol/L (98-107); CREATININE 4.17 mg/dL (0.7-1.3)
[2017-12-16 07:23] LABS: BAND#(MANUAL) 1.15 x10^3/uL; BANDS%(MANUAL) 5 % (0-7); BASOS#(MANUAL) 0.23 x10^3/uL (0-0.1); BASOS% (MANUAL) 1 % (0-1); EOS#(MANUAL) 0.23 x10^3/uL (0.0-0.4); EOS% (MANUAL) 1 % (1-7); LYMPH#(MANUAL) 1.37 x10^3/uL (1-3.4); LYMPHS% (MANUAL) 6 % (22-44); MD YES; METAMYELOCYTES% (MANUAL) 7 % (0-1); MONOS#(MANUAL) 2.29 x10^3/uL (0.3-2.7); MONOS% (MANUAL) 10 % (2-9); MYELOCYTES# (MANUAL) 0.23 x10^3/uL (0-0); MYELOCYTES% (MANUAL) 1 % (0-0); SEGS% (MANUAL) 69 % (42-75)
[2017-12-16 07:25] LABS: <PLATELET ESTIMATE> INCREASED; <PLT MORPHOLOGY> NORMAL PLT MORPH
[2017-12-16 07:26] LABS: ALKALINE PHOSPHATASE 143 U/L (45-117); ANISOCYTOSIS 1+; BILIRUBIN,TOTAL 3.7 mg/dL (0.2-1.0); HYPOCHROMIA 1+; MICROCYTOSIS 1+; PREALBUMIN 9.3 mg/dL (20.0-40.0); TOTAL PROTEIN 7.4 g/dL (6.4-8.2); TRIGLYCERIDES 382 mg/dL (50-200)
[2017-12-16] MEDS: MIDAZOLAM HCL 100 MG in SODIUM CHLORIDE 0.9% 230 ML IV PRN ×2 (07:55→14:48)
[2017-12-16] MEDS: INSULIN REGULAR LOW DOSE QDAY SQ-INSULIN SCH (09:00)
[2017-12-16] MEDS: PANTOPRAZOLE 40 MG IV IV SCH (09:17)
[2017-12-16] MEDS: HEPARIN 5,000 UNITS/ML, 1ML SQ SCH ×2 (09:18→21:09)
[2017-12-16] MEDS: SODIUM CHLORIDE FLUSH 10ML SYR IVF SCH ×2 (09:18→21:13)
[2017-12-16] MEDS: HYDROmorphone 2 MG/ML, 1ML IVPush PRN ×2 (10:22→16:48)
[2017-12-16] MEDS: ACETAMINOPHEN 650 MG SUPP PR PRN (10:57)
[2017-12-16] MEDS: NOREPINEPHRINE 16 MG in SODIUM CHLORIDE 0.9% 234 ML IV PRN (14:47)
[2017-12-16] MEDS: DEXMEDETOMIDINE IV PRN (14:47)
[2017-12-16] MEDS: SODIUM CHLORIDE 0.9% IV PRN (14:47)
[2017-12-16] MEDS ORDERED: FENTANYL PF 100 MCG/2ML ONE (14:49)
[2017-12-16] MEDS ORDERED: FLUMAZENIL 0.1 MG/1 ML, 5ML ONE (14:49)
[2017-12-16] MEDS ORDERED: NALOXONE 1 MG/ML, 2ML ONE (14:49)
[2017-12-16] MEDS ORDERED: MIDAZOLAM 1 MG/ML, 2ML ONE ×2 (14:56)
[2017-12-16] MEDS ORDERED: LIDOCAINE 1%, 20ML ONE (15:23)
[2017-12-16] MEDS ORDERED: DEXTROSE 70% IV SCH ×2 (17:00)
[2017-12-16] MEDS ORDERED: [UNRECOGNIZED DRUG - OTHER] IV SCH ×2 (17:00)
[2017-12-16] MEDS ORDERED: FAT EMULSIONS IV SCH ×2 (17:00)
[2017-12-16] MEDS ORDERED: AMINO ACID 10% IV SCH ×2 (17:00)
[2017-12-16] MEDS: MEROPENEM 500 MG in SODIUM CHLORIDE 0.9% 100 ML IV SCH (21:06)
[2017-12-16] MEDS: FENTANYL PF 2,500 MCG in SODIUM CHLORIDE 0.9% 200 ML IV PRN (21:09)
[2017-12-17] MEDS: DIAZEPAM 5 MG/ML, 10ML VIAL IV SCH ×6 (01:10→21:30)
[2017-12-17] MEDS: ZIPRASIDONE 20 MG INJ IM SCH ×4 (02:30→20:02)
[2017-12-17] MEDS: LINEZOLID PMX 600MG/300ML 300 ML IV SCH ×2 (03:40→15:47)
[2017-12-17] MEDS: SODIUM CHLORIDE 0.9% IV PRN ×2 (04:32→19:26)
[2017-12-17] MEDS: DEXMEDETOMIDINE IV PRN ×2 (04:32→19:26)
[2017-12-17] MEDS: MIDAZOLAM HCL 100 MG in SODIUM CHLORIDE 0.9% 230 ML IV PRN ×2 (04:32→13:27)
[2017-12-17 04:55] LABS: MEAN CORPUSCULAR HEMOGLOBIN 30.2 pg (27.5-34.5); MEAN CORPUSCULAR VOLUME 88.6 fL (81-97); MEAN PLATELET VOLUME 7.2 fL (7.4-10.4); PLATELET COUNT 740 x10^3/uL (130-400); RED BLOOD COUNT 2.67 x10^6/uL (4.38-5.82); RED CELL DISTRIBUTION WIDTH 16.3 % (9.4-14.8)
[2017-12-17 04:57] LABS: ANION GAP 13 mmol/L (5-15); CALCIUM 8.2 mg/dL (8.5-10.1); CHLORIDE 100 mmol/L (98-107)
[2017-12-17 04:59] LABS: CREATININE 6.14 mg/dL (0.7-1.3)
[2017-12-17 05:45] LABS: MD YES
[2017-12-17 05:47] LABS: BAND#(MANUAL) 1.31 x10^3/uL; BANDS%(MANUAL) 6 % (0-7); LYMPH#(MANUAL) 1.96 x10^3/uL (1-3.4); LYMPHS% (MANUAL) 9 % (22-44); METAMYELOCYTES# (MANUAL) 1.53 x10^3/uL (0-0); METAMYELOCYTES% (MANUAL) 7 % (0-1); MONOS#(MANUAL) 0.65 x10^3/uL (0.3-2.7); MONOS% (MANUAL) 3 % (2-9); SEG#(MANUAL) 16.35 x10^3/uL (1.8-6.8); SEGS% (MANUAL) 75 % (42-75)
[2017-12-17 05:48] LABS: <PLATELET ESTIMATE> INCREASED; <PLT MORPHOLOGY> NORMAL PLT MORPH; ANISOCYTOSIS 1+; HYPOCHROMIA 1+; MICROCYTOSIS 1+
[2017-12-17 05:51] LABS: POLYCHROMASIA 1+
[2017-12-17] MEDS ORDERED: VECURONIUM 10 MG ONE ×2 (07:48→09:12)
[2017-12-17] MEDS: HEPARIN 5,000 UNITS/ML, 1ML SQ SCH ×2 (08:00→19:34)
[2017-12-17] MEDS ORDERED: PROPOFOL 100 ML IV ONE ×2 (08:41→20:30)
[2017-12-17] MEDS: HYDROmorphone 2 MG/ML, 1ML IVPush PRN ×3 (08:47→21:45)
[2017-12-17] MEDS: INSULIN REGULAR LOW DOSE QDAY SQ-INSULIN SCH (09:00)
[2017-12-17] MEDS: ERGOCALCIFEROL 50,000 UNIT CAPSULE PO SCH (09:52)
[2017-12-17] MEDS: PANTOPRAZOLE 40 MG IV IV SCH (12:39)
[2017-12-17] MEDS: SODIUM CHLORIDE FLUSH 10ML SYR IVF SCH ×2 (12:39→21:33)
[2017-12-17] MEDS: METHYLNALTREXONE 12 MG/0.6 ML SQ SCH (12:39)
[2017-12-17] MEDS: FENTANYL PF 2,500 MCG in SODIUM CHLORIDE 0.9% 200 ML IV PRN (13:26)
[2017-12-17] MEDS ORDERED: AMINO ACID 10% IV SCH (17:00)
[2017-12-17] MEDS ORDERED: FAT EMULSIONS IV SCH (17:00)
[2017-12-17] MEDS ORDERED: DEXTROSE 70% IV SCH (17:00)
[2017-12-17] MEDS ORDERED: [UNRECOGNIZED DRUG - OTHER] IV SCH (17:00)
[2017-12-17] MEDS: MEROPENEM 500 MG in SODIUM CHLORIDE 0.9% 100 ML IV SCH (19:34)
[2017-12-17] MEDS: DIAZEPAM 5 MG/ML, 2ML IVPush PRN ×4 (20:04→21:31)
[2017-12-18] MEDS: HYDROmorphone 2 MG/ML, 1ML IVPush PRN ×6 (00:05→17:10)
[2017-12-18] MEDS: DIAZEPAM 5 MG/ML, 10ML VIAL IV SCH ×6 (00:39→20:22)
[2017-12-18] MEDS: MIDAZOLAM HCL 100 MG in SODIUM CHLORIDE 0.9% 230 ML IV PRN ×3 (00:40→22:04)
[2017-12-18] MEDS: ZIPRASIDONE 20 MG INJ IM SCH ×4 (02:37→20:22)
[2017-12-18] MEDS: LINEZOLID PMX 600MG/300ML 300 ML IV SCH (02:45)
[2017-12-18 04:07] LABS: ALANINE AMINOTRANSFERASE 28 U/L (12-78); ALBUMIN 1.6 g/dL (3.4-5.0); ANION GAP 12 mmol/L (5-15); CALCIUM 7.9 mg/dL (8.5-10.1); CHLORIDE 97 mmol/L (98-107)
[2017-12-18 04:10] LABS: ALKALINE PHOSPHATASE 165 U/L (45-117); BILIRUBIN,TOTAL 2.3 mg/dL (0.2-1.0); CREATININE 5.07 mg/dL (0.7-1.3); TOTAL PROTEIN 7.6 g/dL (6.4-8.2)
[2017-12-18 04:23] LABS: MEAN CORPUSCULAR HEMOGLOBIN 30.1 pg (27.5-34.5); MEAN CORPUSCULAR HGB CONC 34.2 g/dL (33.2-36.2); MEAN CORPUSCULAR VOLUME 88.1 fL (81-97); MEAN PLATELET VOLUME 7.4 fL (7.4-10.4); PLATELET COUNT 614 x10^3/uL (130-400); RED BLOOD COUNT 2.57 x10^6/uL (4.38-5.82)
[2017-12-18 05:35] LABS: MD YES
[2017-12-18 05:37] LABS: ANISOCYTOSIS 1+; BAND#(MANUAL) 0.95 x10^3/uL; BANDS%(MANUAL) 4 % (0-7); BASOS#(MANUAL) 0.24 x10^3/uL (0-0.1); BASOS% (MANUAL) 1 % (0-1); EOS#(MANUAL) 0.71 x10^3/uL (0.0-0.4); EOS% (MANUAL) 3 % (1-7); LYMPH#(MANUAL) 1.19 x10^3/uL (1-3.4); LYMPHS% (MANUAL) 5 % (22-44); METAMYELOCYTES# (MANUAL) 0.95 x10^3/uL (0-0); METAMYELOCYTES% (MANUAL) 4 % (0-1); MONOS#(MANUAL) 2.13 x10^3/uL (0.3-2.7); MONOS% (MANUAL) 9 % (2-9); MYELOCYTES# (MANUAL) 0.71 x10^3/uL (0-0); MYELOCYTES% (MANUAL) 3 % (0-0); POLYCHROMASIA 1+; SEG#(MANUAL) 16.83 x10^3/uL (1.8-6.8); SEGS% (MANUAL) 71 % (42-75)
[2017-12-18 05:38] LABS: <PLATELET ESTIMATE> INCREASED; <PLT MORPHOLOGY> NORMAL PLT MORPH; MICROCYTOSIS 1+
[2017-12-18] MEDS: SODIUM CHLORIDE 0.9% IV PRN (08:05)
[2017-12-18] MEDS: HEPARIN 5,000 UNITS/ML, 1ML SQ SCH ×2 (08:05→20:21)
[2017-12-18] MEDS: DEXMEDETOMIDINE IV PRN (08:05)
[2017-12-18] MEDS: SODIUM CHLORIDE FLUSH 10ML SYR IVF SCH ×2 (08:12→20:22)
[2017-12-18] MEDS: PANTOPRAZOLE 40 MG IV IV SCH (10:56)
[2017-12-18] MEDS: FENTANYL PF 2,500 MCG in SODIUM CHLORIDE 0.9% 200 ML IV PRN (10:57)
[2017-12-18 11:38] LABS: TROPONIN I < 0.015 ng/mL (0.000-0.045)
[2017-12-18] MEDS ORDERED: [UNRECOGNIZED DRUG - OTHER] IV SCH (17:00)
[2017-12-18] MEDS ORDERED: SODIUM CHLORIDE IV SCH (17:00)
[2017-12-18] MEDS ORDERED: FILTER, DISP 1.2 MICRON FOR TPN/PVN IV PRN (17:00)
[2017-12-18] MEDS ORDERED: AMINO ACID 10% IV SCH (17:00)
[2017-12-18] MEDS ORDERED: DEXTROSE 70% IV SCH (17:00)
[2017-12-18] MEDS: INSULIN REGULAR LOW DOSE QDAY SQ-INSULIN SCH (17:12)
[2017-12-18] MEDS: MEROPENEM 500 MG in SODIUM CHLORIDE 0.9% 100 ML IV SCH (20:21)
[2017-12-19] MEDS: SODIUM CHLORIDE 0.9% IV PRN ×2 (00:54→17:25)
[2017-12-19] MEDS: DEXMEDETOMIDINE IV PRN ×2 (00:54→17:25)
[2017-12-19] MEDS: DIAZEPAM 5 MG/ML, 10ML VIAL IV SCH ×7 (01:07→23:56)
[2017-12-19] MEDS: ZIPRASIDONE 20 MG INJ IM SCH ×4 (02:51→19:39)
[2017-12-19 05:44] LABS: CHLORIDE 93 mmol/L (98-107)
[2017-12-19 06:00] LABS: MEAN CORPUSCULAR HEMOGLOBIN 30.4 pg (27.5-34.5); MEAN CORPUSCULAR HGB CONC 34.9 g/dL (33.2-36.2); MEAN CORPUSCULAR VOLUME 87.1 fL (81-97); MEAN PLATELET VOLUME 7.7 fL (7.4-10.4); PLATELET COUNT 539 x10^3/uL (130-400); RED BLOOD COUNT 2.38 x10^6/uL (4.38-5.82); RED CELL DISTRIBUTION WIDTH 16.7 % (9.4-14.8)
[2017-12-19 06:02] LABS: ANION GAP 16 mmol/L (5-15); CALCIUM 8.2 mg/dL (8.5-10.1); CREATININE 7.82 mg/dL (0.7-1.3); TRIGLYCERIDES 229 mg/dL (50-200)
[2017-12-19 06:25] LABS: MD YES
[2017-12-19 06:28] LABS: BAND#(MANUAL) 1.95 x10^3/uL; BANDS%(MANUAL) 7 % (0-7); LYMPH#(MANUAL) 2.22 x10^3/uL (1-3.4); LYMPHS% (MANUAL) 8 % (22-44); METAMYELOCYTES# (MANUAL) 3.06 x10^3/uL (0-0); METAMYELOCYTES% (MANUAL) 11 % (0-1); MONOS#(MANUAL) 1.95 x10^3/uL (0.3-2.7); MONOS% (MANUAL) 7 % (2-9); MYELOCYTES# (MANUAL) 0.83 x10^3/uL (0-0); MYELOCYTES% (MANUAL) 3 % (0-0); SEG#(MANUAL) 17.79 x10^3/uL (1.8-6.8); SEGS% (MANUAL) 64 % (42-75)
[2017-12-19 06:29] LABS: <PLATELET ESTIMATE> INCREASED; ANISOCYTOSIS 1+; MICROCYTOSIS 1+; POLYCHROMASIA 1+
[2017-12-19 06:30] LABS: <PLT MORPHOLOGY> NORMAL PLT MORPH
[2017-12-19] MEDS: SODIUM CHLORIDE FLUSH 10ML SYR IVF SCH ×2 (08:30→19:56)
[2017-12-19] MEDS: INSULIN REGULAR LOW DOSE QDAY SQ-INSULIN SCH (09:00)
[2017-12-19] MEDS: HYDROmorphone 2 MG/ML, 1ML IVPush PRN (09:26)
[2017-12-19] MEDS: PANTOPRAZOLE 40 MG IV IV SCH (09:34)
[2017-12-19] MEDS: HEPARIN 5,000 UNITS/ML, 1ML SQ SCH ×2 (09:43→19:40)
[2017-12-19] MEDS: METHYLNALTREXONE 12 MG/0.6 ML SQ SCH (09:47)
[2017-12-19] MEDS: MIDAZOLAM HCL 100 MG in SODIUM CHLORIDE 0.9% 230 ML IV PRN ×2 (09:57→19:39)
[2017-12-19] MEDS: FENTANYL PF 2,500 MCG in SODIUM CHLORIDE 0.9% 200 ML IV PRN (10:17)
[2017-12-19] MEDS ORDERED: HYDROmorphone 2 MG/ML, 1ML IVPush ONE (11:00)
[2017-12-19] MEDS ORDERED: DEXTROSE 70% IV SCH ×3 (17:00)
[2017-12-19] MEDS ORDERED: FAT EMULSIONS IV SCH ×3 (17:00)
[2017-12-19] MEDS ORDERED: [UNRECOGNIZED DRUG - OTHER] IV SCH ×3 (17:00)
[2017-12-19] MEDS ORDERED: AMINO ACID 10% IV SCH ×3 (17:00)
[2017-12-19] MEDS ORDERED: FILTER, DISP 1.2 MICRON FOR TPN/PVN IV PRN (17:00)
[2017-12-19] MEDS: MEROPENEM 500 MG in SODIUM CHLORIDE 0.9% 100 ML IV SCH (19:40)
[2017-12-20] MEDS: ACETAMINOPHEN 650 MG SUPP PR PRN ×2 (00:46→11:20)
[2017-12-20] MEDS: ZIPRASIDONE 20 MG INJ IM SCH ×4 (02:30→20:09)
[2017-12-20] MEDS: DIAZEPAM 5 MG/ML, 10ML VIAL IV SCH ×5 (04:18→20:09)
[2017-12-20] MEDS: SODIUM CHLORIDE 0.9% IV PRN ×2 (04:18→20:08)
[2017-12-20] MEDS: MIDAZOLAM HCL 100 MG in SODIUM CHLORIDE 0.9% 230 ML IV PRN ×2 (04:18→16:24)
[2017-12-20] MEDS: DEXMEDETOMIDINE IV PRN ×2 (04:18→20:08)
[2017-12-20 05:29] LABS: MEAN CORPUSCULAR HGB CONC 34.3 g/dL (33.2-36.2); MEAN CORPUSCULAR VOLUME 87.2 fL (81-97); MEAN PLATELET VOLUME 7.7 fL (7.4-10.4); PLATELET COUNT 540 x10^3/uL (130-400); RED BLOOD COUNT 2.35 x10^6/uL (4.38-5.82); RED CELL DISTRIBUTION WIDTH 16.5 % (9.4-14.8)
[2017-12-20 05:43] LABS: CHLORIDE 96 mmol/L (98-107)
[2017-12-20 05:54] LABS: ALANINE AMINOTRANSFERASE 49 U/L (12-78); ALBUMIN 1.5 g/dL (3.4-5.0); ALKALINE PHOSPHATASE 185 U/L (45-117); ANION GAP 11 mmol/L (5-15); CALCIUM 8.2 mg/dL (8.5-10.1); CREATININE 5.61 mg/dL (0.7-1.3); TOTAL PROTEIN 7.4 g/dL (6.4-8.2)
[2017-12-20 06:00] LABS: MD YES
[2017-12-20 06:02] LABS: <PLATELET ESTIMATE> INCREASED; <PLT MORPHOLOGY> NORMAL PLT MORPH; ANISOCYTOSIS 1+; BAND#(MANUAL) 0.24 x10^3/uL; BANDS%(MANUAL) 1 % (0-7); EOS#(MANUAL) 0.96 x10^3/uL (0.0-0.4); EOS% (MANUAL) 4 % (1-7); LYMPH#(MANUAL) 1.69 x10^3/uL (1-3.4); LYMPHS% (MANUAL) 7 % (22-44); METAMYELOCYTES# (MANUAL) 0.96 x10^3/uL (0-0); METAMYELOCYTES% (MANUAL) 4 % (0-1); MICROCYTOSIS 1+; MONOS#(MANUAL) 2.41 x10^3/uL (0.3-2.7); MONOS% (MANUAL) 10 % (2-9); POLYCHROMASIA 1+; SEG#(MANUAL) 17.83 x10^3/uL (1.8-6.8); SEGS% (MANUAL) 74 % (42-75)
[2017-12-20 06:04] LABS: TARGET CELLS 1+
[2017-12-20] MEDS: INSULIN REGULAR LOW DOSE QDAY SQ-INSULIN SCH (08:04)
[2017-12-20] MEDS: SODIUM CHLORIDE FLUSH 10ML SYR IVF SCH ×2 (08:25→20:10)
[2017-12-20] MEDS: HEPARIN 5,000 UNITS/ML, 1ML SQ SCH ×2 (08:25→20:09)
[2017-12-20] MEDS: PANTOPRAZOLE 40 MG IV IV SCH (08:25)
[2017-12-20] MEDS: ERGOCALCIFEROL 50,000 UNIT CAPSULE PO SCH (08:40)
[2017-12-20] MEDS: HYDROmorphone 2 MG/ML, 1ML IVPush PRN ×3 (09:05→16:23)
[2017-12-20] MEDS ORDERED: FILTER, DISP 1.2 MICRON FOR TPN/PVN IV PRN (17:00)
[2017-12-20] MEDS ORDERED: FAT EMULSIONS IV SCH (17:00)
[2017-12-20] MEDS ORDERED: [UNRECOGNIZED DRUG - OTHER] IV SCH (17:00)
[2017-12-20] MEDS ORDERED: DEXTROSE 70% IV SCH (17:00)
[2017-12-20] MEDS ORDERED: AMINO ACID 10% IV SCH (17:00)
[2017-12-20] MEDS: MEROPENEM 500 MG in SODIUM CHLORIDE 0.9% 100 ML IV SCH (20:07)
[2017-12-21] MEDS: MIDAZOLAM HCL 100 MG in SODIUM CHLORIDE 0.9% 230 ML IV PRN ×2 (01:23→14:35)
[2017-12-21] MEDS: ZIPRASIDONE 20 MG INJ IM SCH ×4 (02:25→20:30)
[2017-12-21] MEDS: DIAZEPAM 5 MG/ML, 10ML VIAL IV SCH ×6 (02:25→20:34)
[2017-12-21 05:49] LABS: CHLORIDE 99 mmol/L (98-107)
[2017-12-21 06:07] LABS: MEAN CORPUSCULAR HEMOGLOBIN 29.9 pg (27.5-34.5); MEAN CORPUSCULAR HGB CONC 34.7 g/dL (33.2-36.2); MEAN CORPUSCULAR VOLUME 86.3 fL (81-97); MEAN PLATELET VOLUME 7.4 fL (7.4-10.4); PLATELET COUNT 541 x10^3/uL (130-400); RED BLOOD COUNT 2.25 x10^6/uL (4.38-5.82); RED CELL DISTRIBUTION WIDTH 16.3 % (9.4-14.8)
[2017-12-21 06:18] LABS: ALANINE AMINOTRANSFERASE 39 U/L (12-78); ALBUMIN 1.5 g/dL (3.4-5.0); ALKALINE PHOSPHATASE 169 U/L (45-117); ANION GAP 17 mmol/L (5-15); BILIRUBIN,TOTAL 2.4 mg/dL (0.2-1.0); CALCIUM 8.8 mg/dL (8.5-10.1); CREATININE 7.48 mg/dL (0.7-1.3); TOTAL PROTEIN 7.5 g/dL (6.4-8.2)
[2017-12-21] MEDS: HYDROmorphone 2 MG/ML, 1ML IVPush PRN ×5 (06:24→22:00)
[2017-12-21] MEDS: ACETAMINOPHEN 650 MG SUPP PR PRN ×2 (06:25→14:35)
[2017-12-21 06:45] LABS: MD YES
[2017-12-21 06:51] LABS: ANISOCYTOSIS 1+; BAND#(MANUAL) 1.44 x10^3/uL; BANDS%(MANUAL) 6 % (0-7); EOS#(MANUAL) 0.72 x10^3/uL (0.0-0.4); EOS% (MANUAL) 3 % (1-7); LYMPH#(MANUAL) 1.92 x10^3/uL (1-3.4); LYMPHS% (MANUAL) 8 % (22-44); METAMYELOCYTES# (MANUAL) 1.44 x10^3/uL (0-0); METAMYELOCYTES% (MANUAL) 6 % (0-1); MICROCYTOSIS 1+; MONOS#(MANUAL) 0.72 x10^3/uL (0.3-2.7); MONOS% (MANUAL) 3 % (2-9); MYELOCYTES# (MANUAL) 0.24 x10^3/uL (0-0); MYELOCYTES% (MANUAL) 1 % (0-0); SEG#(MANUAL) 17.52 x10^3/uL (1.8-6.8); SEGS% (MANUAL) 73 % (42-75)
[2017-12-21 06:52] LABS: <PLATELET ESTIMATE> INCREASED; <PLT MORPHOLOGY> NORMAL PLT MORPH; POLYCHROMASIA 1+
[2017-12-21] MEDS: HEPARIN 5,000 UNITS/ML, 1ML SQ SCH ×2 (07:57→20:34)
[2017-12-21] MEDS: METHYLNALTREXONE 12 MG/0.6 ML SQ SCH (09:00)
[2017-12-21] MEDS: PANTOPRAZOLE 40 MG IV IV SCH (12:01)
[2017-12-21] MEDS: SODIUM CHLORIDE FLUSH 10ML SYR IVF SCH ×2 (12:03→20:35)
[2017-12-21] MEDS: INSULIN REGULAR LOW DOSE QDAY SQ-INSULIN SCH (13:19)
[2017-12-21 15:48] VITALS: BP 133/58
[2017-12-21 16:05] VITALS: BP 129/58
[2017-12-21 16:42] VITALS: BP 143/58
[2017-12-21] MEDS ORDERED: DEXTROSE 70% IV SCH (17:00)
[2017-12-21] MEDS ORDERED: [UNRECOGNIZED DRUG - OTHER] IV SCH (17:00)
[2017-12-21] MEDS ORDERED: AMINO ACID 10% IV SCH (17:00)
[2017-12-21] MEDS ORDERED: FAT EMULSIONS IV SCH (17:00)
[2017-12-21 17:08] VITALS: BP 129/62
[2017-12-21 17:30] VITALS: BP 103/77
[2017-12-21 18:08] VITALS: BP 140/64
[2017-12-21] MEDS: MEROPENEM 500 MG in SODIUM CHLORIDE 0.9% 100 ML IV SCH (23:27)
[2017-12-22] MEDS: MIDAZOLAM HCL 100 MG in SODIUM CHLORIDE 0.9% 230 ML IV PRN ×3 (00:14→14:03)
[2017-12-22] MEDS: HYDROmorphone 2 MG/ML, 1ML IVPush PRN ×10 (00:26→23:23)
[2017-12-22] MEDS: DIAZEPAM 5 MG/ML, 10ML VIAL IV SCH ×7 (01:00→21:21)
[2017-12-22] MEDS: ZIPRASIDONE 20 MG INJ IM SCH ×4 (01:46→20:01)
[2017-12-22 03:58] LABS: MEAN CORPUSCULAR HEMOGLOBIN 29.6 pg (27.5-34.5); MEAN CORPUSCULAR HGB CONC 34.4 g/dL (33.2-36.2); MEAN CORPUSCULAR VOLUME 86.1 fL (81-97); MEAN PLATELET VOLUME 7.2 fL (7.4-10.4); PLATELET COUNT 532 x10^3/uL (130-400); RED BLOOD COUNT 2.75 x10^6/uL (4.38-5.82); RED CELL DISTRIBUTION WIDTH 17.1 % (9.4-14.8)
[2017-12-22 04:08] LABS: ANION GAP 13 mmol/L (5-15); CALCIUM 7.9 mg/dL (8.5-10.1); CHLORIDE 99 mmol/L (98-107); CREATININE 4.66 mg/dL (0.7-1.3); TRIGLYCERIDES 266 mg/dL (50-200)
[2017-12-22 04:19] LABS: MD YES
[2017-12-22 04:21] LABS: ANISOCYTOSIS 1+; BAND#(MANUAL) 0.67 x10^3/uL; BANDS%(MANUAL) 3 % (0-7); EOS#(MANUAL) 0.22 x10^3/uL (0.0-0.4); EOS% (MANUAL) 1 % (1-7); LYMPH#(MANUAL) 2.68 x10^3/uL (1-3.4); LYMPHS% (MANUAL) 12 % (22-44); METAMYELOCYTES# (MANUAL) 0.22 x10^3/uL (0-0); METAMYELOCYTES% (MANUAL) 1 % (0-1); MICROCYTOSIS 1+; MONOS% (MANUAL) 13 % (2-9); MYELOCYTES# (MANUAL) 0.22 x10^3/uL (0-0); MYELOCYTES% (MANUAL) 1 % (0-0); POLYCHROMASIA 1+; SEG#(MANUAL) 15.39 x10^3/uL (1.8-6.8); SEGS% (MANUAL) 69 % (42-75)
[2017-12-22 04:22] LABS: <PLATELET ESTIMATE> INCREASED; <PLT MORPHOLOGY> NORMAL PLT MORPH
[2017-12-22] MEDS ORDERED: MAGNESIUM SULFATE PMX 2GM/50ML 50 ML IV ONE (07:30)
[2017-12-22] MEDS: INSULIN REGULAR LOW DOSE QDAY SQ-INSULIN SCH (09:00)
[2017-12-22] MEDS: HEPARIN 5,000 UNITS/ML, 1ML SQ SCH ×2 (09:09→20:07)
[2017-12-22] MEDS: PANTOPRAZOLE 40 MG IV IV SCH (09:10)
[2017-12-22] MEDS: SODIUM CHLORIDE FLUSH 10ML SYR IVF SCH ×2 (09:32→21:21)
[2017-12-22] MEDS ORDERED: MIDAZOLAM HCL 50 MG in SODIUM CHLORIDE 0.9% 240 ML IV PRN ×2 (15:09→15:11)
[2017-12-22] MEDS ORDERED: DIPHENHYDRAMINE 50 MG/ML, 1ML IVPush ONE (16:30)
[2017-12-22] MEDS ORDERED: AMINO ACID 10% IV SCH ×2 (17:00)
[2017-12-22] MEDS ORDERED: DEXTROSE 70% IV SCH ×2 (17:00)
[2017-12-22] MEDS ORDERED: FAT EMULSIONS IV SCH ×2 (17:00)
[2017-12-22] MEDS ORDERED: [UNRECOGNIZED DRUG - OTHER] IV SCH ×2 (17:00)
[2017-12-22] MEDS: MEROPENEM 500 MG in SODIUM CHLORIDE 0.9% 100 ML IV SCH (20:06)
[2017-12-23] MEDS: DIAZEPAM 5 MG/ML, 10ML VIAL IV SCH ×2 (01:09→05:00)
[2017-12-23] MEDS: HYDROmorphone 2 MG/ML, 1ML IVPush PRN ×10 (01:44→22:43)
[2017-12-23] MEDS: ZIPRASIDONE 20 MG INJ IM SCH (02:30)
[2017-12-23 04:02] LABS: MEAN CORPUSCULAR HEMOGLOBIN 28.9 pg (27.5-34.5); MEAN CORPUSCULAR HGB CONC 33.3 g/dL (33.2-36.2); MEAN CORPUSCULAR VOLUME 86.9 fL (81-97); MEAN PLATELET VOLUME 7.2 fL (7.4-10.4); PLATELET COUNT 553 x10^3/uL (130-400); RED BLOOD COUNT 2.77 x10^6/uL (4.38-5.82)
[2017-12-23 04:12] LABS: ANION GAP 13 mmol/L (5-15); CALCIUM 8.5 mg/dL (8.5-10.1); CHLORIDE 101 mmol/L (98-107); CREATININE 6.64 mg/dL (0.7-1.3)
[2017-12-23 04:32] LABS: MD YES
[2017-12-23 04:35] LABS: ANISOCYTOSIS 1+; BAND#(MANUAL) 0.87 x10^3/uL; BANDS%(MANUAL) 4 % (0-7); EOS#(MANUAL) 0.43 x10^3/uL (0.0-0.4); EOS% (MANUAL) 2 % (1-7); LYMPH#(MANUAL) 3.26 x10^3/uL (1-3.4); LYMPHS% (MANUAL) 15 % (22-44); METAMYELOCYTES# (MANUAL) 0.22 x10^3/uL (0-0); METAMYELOCYTES% (MANUAL) 1 % (0-1); MICROCYTOSIS 1+; MONOS#(MANUAL) 0.87 x10^3/uL (0.3-2.7); MONOS% (MANUAL) 4 % (2-9); MYELOCYTES# (MANUAL) 0.22 x10^3/uL (0-0); MYELOCYTES% (MANUAL) 1 % (0-0); SEG#(MANUAL) 15.84 x10^3/uL (1.8-6.8); SEGS% (MANUAL) 73 % (42-75)
[2017-12-23 04:40] LABS: <PLATELET ESTIMATE> INCREASED; <PLT MORPHOLOGY> NORMAL PLT MORPH; HYPOCHROMIA 1+
[2017-12-23] MEDS: HEPARIN 5,000 UNITS/ML, 1ML SQ SCH ×2 (08:39→20:20)
[2017-12-23] MEDS: PANTOPRAZOLE 40 MG IV IV SCH (08:44)
[2017-12-23] MEDS: INSULIN REGULAR LOW DOSE QDAY SQ-INSULIN SCH (09:00)
[2017-12-23] MEDS: SODIUM CHLORIDE FLUSH 10ML SYR IVF SCH ×2 (10:50→20:22)
[2017-12-23] MEDS: METHYLNALTREXONE 12 MG/0.6 ML SQ SCH (11:11)
[2017-12-23] MEDS ORDERED: AMINO ACID 10% IV SCH (17:00)
[2017-12-23] MEDS ORDERED: [UNRECOGNIZED DRUG - OTHER] IV SCH (17:00)
[2017-12-23] MEDS ORDERED: FAT EMULSIONS IV SCH (17:00)
[2017-12-23] MEDS ORDERED: DEXTROSE 70% IV SCH (17:00)
[2017-12-23] MEDS: MEROPENEM 500 MG in SODIUM CHLORIDE 0.9% 100 ML IV SCH (20:17)
[2017-12-24] MEDS: HYDROmorphone 2 MG/ML, 1ML IVPush PRN ×10 (00:45→23:41)
[2017-12-24 04:59] LABS: MEAN CORPUSCULAR HEMOGLOBIN 29.7 pg (27.5-34.5); MEAN CORPUSCULAR HGB CONC 33.9 g/dL (33.2-36.2); MEAN CORPUSCULAR VOLUME 87.7 fL (81-97); MEAN PLATELET VOLUME 7.5 fL (7.4-10.4); PLATELET COUNT 525 x10^3/uL (130-400); RED BLOOD COUNT 2.69 x10^6/uL (4.38-5.82); RED CELL DISTRIBUTION WIDTH 17.2 % (9.4-14.8)
[2017-12-24 05:07] LABS: ANION GAP 16 mmol/L (5-15); CALCIUM 8.5 mg/dL (8.5-10.1); CHLORIDE 102 mmol/L (98-107); CREATININE 8.46 mg/dL (0.7-1.3)
[2017-12-24 05:57] LABS: MD YES
[2017-12-24 05:58] LABS: BAND#(MANUAL) 0.46 x10^3/uL; BANDS%(MANUAL) 2 % (0-7); EOS#(MANUAL) 0.23 x10^3/uL (0.0-0.4); EOS% (MANUAL) 1 % (1-7); LYMPH#(MANUAL) 1.85 x10^3/uL (1-3.4); LYMPHS% (MANUAL) 8 % (22-44); METAMYELOCYTES# (MANUAL) 0.23 x10^3/uL (0-0); METAMYELOCYTES% (MANUAL) 1 % (0-1); MONOS#(MANUAL) 1.39 x10^3/uL (0.3-2.7); MONOS% (MANUAL) 6 % (2-9); SEG#(MANUAL) 18.94 x10^3/uL (1.8-6.8); SEGS% (MANUAL) 82 % (42-75)
[2017-12-24 06:00] LABS: ANISOCYTOSIS 1+; POLYCHROMASIA 1+
[2017-12-24 06:01] LABS: <PLATELET ESTIMATE> INCREASED; <PLT MORPHOLOGY> NORMAL PLT MORPH; MICROCYTOSIS 1+
[2017-12-24] MEDS: ERGOCALCIFEROL 50,000 UNIT CAPSULE PO SCH (08:30)
[2017-12-24] MEDS: INSULIN REGULAR LOW DOSE QDAY SQ-INSULIN SCH (09:00)
[2017-12-24] MEDS: PANTOPRAZOLE 40 MG IV IV SCH (09:52)
[2017-12-24] MEDS: SODIUM CHLORIDE FLUSH 10ML SYR IVF SCH ×2 (09:52→20:34)
[2017-12-24] MEDS: HEPARIN 5,000 UNITS/ML, 1ML SQ SCH ×2 (09:53→20:35)
[2017-12-24] MEDS ORDERED: FILTER, DISP 1.2 MICRON FOR TPN/PVN IV PRN (10:00)
[2017-12-24] MEDS ORDERED: TPN PER PHARMACY IV SCH (17:00)
[2017-12-24] MEDS ORDERED: [UNRECOGNIZED DRUG - OTHER] IV SCH (17:00)
[2017-12-24] MEDS ORDERED: DEXTROSE 70% IV SCH (17:00)
[2017-12-24] MEDS ORDERED: DEXTROSE 10% 500 ML IV PRN (17:00)
[2017-12-24] MEDS ORDERED: AMINO ACID 10% IV SCH (17:00)
[2017-12-24] MEDS ORDERED: FAT EMULSIONS IV SCH (17:00)
[2017-12-24] MEDS: MEROPENEM 500 MG in SODIUM CHLORIDE 0.9% 100 ML IV SCH (20:34)
[2017-12-24] MEDS: ACETAMINOPHEN 650 MG SUPP PR PRN (20:34)
[2017-12-25] MEDS: HYDROmorphone 2 MG/ML, 1ML IVPush PRN ×6 (02:28→18:45)
[2017-12-25] MEDS: ACETAMINOPHEN 650 MG SUPP PR PRN (03:04)
[2017-12-25 05:51] LABS: MEAN CORPUSCULAR HEMOGLOBIN 29.7 pg (27.5-34.5); MEAN CORPUSCULAR HGB CONC 34.1 g/dL (33.2-36.2); MEAN CORPUSCULAR VOLUME 87.3 fL (81-97); MEAN PLATELET VOLUME 7.4 fL (7.4-10.4); PLATELET COUNT 604 x10^3/uL (130-400); RED BLOOD COUNT 2.88 x10^6/uL (4.38-5.82); RED CELL DISTRIBUTION WIDTH 16.6 % (9.4-14.8)
[2017-12-25 05:59] LABS: ANION GAP 12 mmol/L (5-15); CALCIUM 8.7 mg/dL (8.5-10.1); CHLORIDE 101 mmol/L (98-107); TRIGLYCERIDES 261 mg/dL (50-200)
[2017-12-25 06:25] LABS: MD YES
[2017-12-25 06:28] LABS: ANISOCYTOSIS 1+; LYMPH#(MANUAL) 1.38 x10^3/uL (1-3.4); LYMPHS% (MANUAL) 6 % (22-44); METAMYELOCYTES# (MANUAL) 0.92 x10^3/uL (0-0); METAMYELOCYTES% (MANUAL) 4 % (0-1); MONOS#(MANUAL) 0.92 x10^3/uL (0.3-2.7); MONOS% (MANUAL) 4 % (2-9); MYELOCYTES# (MANUAL) 0.46 x10^3/uL (0-0); MYELOCYTES% (MANUAL) 2 % (0-0); SEG#(MANUAL) 19.32 x10^3/uL (1.8-6.8); SEGS% (MANUAL) 84 % (42-75)
[2017-12-25 06:29] LABS: <PLATELET ESTIMATE> INCREASED; <PLT MORPHOLOGY> NORMAL PLT MORPH
[2017-12-25] MEDS: INSULIN REGULAR LOW DOSE QDAY SQ-INSULIN SCH (09:00)
[2017-12-25] MEDS: HEPARIN 5,000 UNITS/ML, 1ML SQ SCH ×2 (09:18→20:46)
[2017-12-25] MEDS: PANTOPRAZOLE 40 MG IV IV SCH (09:18)
[2017-12-25] MEDS: SODIUM CHLORIDE FLUSH 10ML SYR IVF SCH ×2 (09:19→20:46)
[2017-12-25] MEDS: METHYLNALTREXONE 12 MG/0.6 ML SQ SCH (10:32)
[2017-12-25] MEDS ORDERED: AMINO ACID 10% IV SCH (17:00)
[2017-12-25] MEDS ORDERED: FILTER, DISP 1.2 MICRON FOR TPN/PVN IV PRN (17:00)
[2017-12-25] MEDS ORDERED: [UNRECOGNIZED DRUG - OTHER] IV SCH (17:00)
[2017-12-25] MEDS ORDERED: FAT EMULSIONS IV SCH (17:00)
[2017-12-25] MEDS ORDERED: DEXTROSE 70% IV SCH (17:00)
[2017-12-25] MEDS: MEROPENEM 500 MG in SODIUM CHLORIDE 0.9% 100 ML IV SCH (19:44)
[2017-12-26] MEDS: HYDROmorphone 2 MG/ML, 1ML IVPush PRN ×4 (00:49→20:08)
[2017-12-26 05:57] LABS: CHLORIDE 105 mmol/L (98-107)
[2017-12-26 06:04] LABS: MEAN CORPUSCULAR HGB CONC 33.7 g/dL (33.2-36.2); MEAN PLATELET VOLUME 7.6 fL (7.4-10.4); PLATELET COUNT 556 x10^3/uL (130-400); RED BLOOD COUNT 2.58 x10^6/uL (4.38-5.82); RED CELL DISTRIBUTION WIDTH 16.9 % (9.4-14.8)
[2017-12-26 06:29] LABS: ANION GAP 15 mmol/L (5-15); CALCIUM 8.6 mg/dL (8.5-10.1); CREATININE 6.97 mg/dL (0.7-1.3); PREALBUMIN 9.3 mg/dL (20.0-40.0)
[2017-12-26 06:47] LABS: MD YES
[2017-12-26 06:48] LABS: BAND#(MANUAL) 0.39 x10^3/uL; BANDS%(MANUAL) 2 % (0-7); LYMPH#(MANUAL) 0.59 x10^3/uL (1-3.4); LYMPHS% (MANUAL) 3 % (22-44); MONOS#(MANUAL) 1.37 x10^3/uL (0.3-2.7); MONOS% (MANUAL) 7 % (2-9); SEG#(MANUAL) 17.16 x10^3/uL (1.8-6.8); SEGS% (MANUAL) 88 % (42-75)
[2017-12-26 06:50] LABS: ANISOCYTOSIS 1+; POLYCHROMASIA 1+
[2017-12-26 06:51] LABS: <PLATELET ESTIMATE> INCREASED; <PLT MORPHOLOGY> NORMAL PLT MORPH
[2017-12-26] MEDS: INSULIN REGULAR LOW DOSE QDAY SQ-INSULIN SCH (09:00)
[2017-12-26] MEDS: PANTOPRAZOLE 40 MG IV IV SCH (09:42)
[2017-12-26] MEDS: HEPARIN 5,000 UNITS/ML, 1ML SQ SCH ×2 (09:42→20:08)
[2017-12-26] MEDS: SODIUM CHLORIDE FLUSH 10ML SYR IVF SCH ×2 (09:43→20:09)
[2017-12-26] MEDS ORDERED: FAT EMULSIONS IV SCH (17:00)
[2017-12-26] MEDS ORDERED: [UNRECOGNIZED DRUG - OTHER] IV SCH (17:00)
[2017-12-26] MEDS ORDERED: DEXTROSE 70% IV SCH (17:00)
[2017-12-26] MEDS ORDERED: AMINO ACID 10% IV SCH (17:00)
[2017-12-26] MEDS ORDERED: FILTER, DISP 1.2 MICRON FOR TPN/PVN IV PRN (17:00)
[2017-12-26] MEDS: MEROPENEM 500 MG in SODIUM CHLORIDE 0.9% 100 ML IV SCH (20:08)
[2017-12-27] MEDS: ONDANSETRON 2MG/ML, 2ML IVPush PRN (02:25)
[2017-12-27] MEDS: HYDROmorphone 2 MG/ML, 1ML IVPush PRN ×3 (02:48→18:06)
[2017-12-27 05:19] LABS: ANION GAP 10 mmol/L (5-15); CALCIUM 8.4 mg/dL (8.5-10.1); CHLORIDE 105 mmol/L (98-107)
[2017-12-27 05:20] LABS: CREATININE 5.29 mg/dL (0.7-1.3)
[2017-12-27 06:06] LABS: MEAN CORPUSCULAR HEMOGLOBIN 29.9 pg (27.5-34.5); MEAN CORPUSCULAR HGB CONC 33.7 g/dL (33.2-36.2); MEAN CORPUSCULAR VOLUME 88.7 fL (81-97); MEAN PLATELET VOLUME 7.4 fL (7.4-10.4); PLATELET COUNT 604 x10^3/uL (130-400); RED BLOOD COUNT 2.53 x10^6/uL (4.38-5.82)
[2017-12-27 06:30] LABS: MD YES
[2017-12-27 06:32] LABS: BAND#(MANUAL) 0.17 x10^3/uL; BANDS%(MANUAL) 1 % (0-7); LYMPH#(MANUAL) 0.84 x10^3/uL (1-3.4); LYMPHS% (MANUAL) 5 % (22-44); MONOS#(MANUAL) 0.67 x10^3/uL (0.3-2.7); MONOS% (MANUAL) 4 % (2-9); SEG#(MANUAL) 15.03 x10^3/uL (1.8-6.8); SEGS% (MANUAL) 90 % (42-75)
[2017-12-27 06:34] LABS: ANISOCYTOSIS 1+; POLYCHROMASIA 1+
[2017-12-27 06:35] LABS: <PLATELET ESTIMATE> INCREASED; <PLT MORPHOLOGY> NORMAL PLT MORPH
[2017-12-27] MEDS: ERGOCALCIFEROL 50,000 UNIT CAPSULE PO SCH (08:30)
[2017-12-27] MEDS: INSULIN REGULAR LOW DOSE QDAY SQ-INSULIN SCH (09:00)
[2017-12-27] MEDS ORDERED: SODIUM CHLORIDE 0.9% 1,000 ML IV SCH (09:00)
[2017-12-27] MEDS: METHYLNALTREXONE 12 MG/0.6 ML SQ SCH (09:46)
[2017-12-27] MEDS: PANTOPRAZOLE 40 MG IV IV SCH (09:46)
[2017-12-27] MEDS: HEPARIN 5,000 UNITS/ML, 1ML SQ SCH (09:46)
[2017-12-27] MEDS: SODIUM CHLORIDE FLUSH 10ML SYR IVF SCH (09:47)
[2017-12-27] MEDS ORDERED: BENZOCAINE 20% SPRAY 0.5ML TP ONE (13:30)
[2017-12-27] MEDS ORDERED: FILTER, DISP 1.2 MICRON FOR TPN/PVN IV PRN (17:00)
[2017-12-27] MEDS ORDERED: FAT EMULSIONS IV SCH (17:00)
[2017-12-27] MEDS ORDERED: [UNRECOGNIZED DRUG - OTHER] IV SCH (17:00)
[2017-12-27] MEDS ORDERED: DEXTROSE 70% IV SCH (17:00)
[2017-12-27] MEDS ORDERED: AMINO ACID 10% IV SCH (17:00)
[2017-12-27] MEDS ORDERED: MEROPENEM IVPB (17:16)
[2017-12-27] MEDS ORDERED: METH12VI2 SQ (17:16)
[2017-12-27] MEDS ORDERED: HYDR2VIA2 IVPush (17:16)
[2017-12-27] MEDS ORDERED: HEPA50002 SQ (17:16)
[2017-12-27] MEDS ORDERED: INSU100V5 SQ-INSULIN (17:16)
[2017-12-27] MEDS ORDERED: Tpn Per Pharmacy IV (17:16)
[2017-12-27] MEDS ORDERED: PANT40VI IV (17:16)
== END 2017-12-27 18:50 | DRG 4 ==
LOC: ED 03:55 → EDIP 05:42 → 3NE 07:29 → CCU 11-28 09:32
PROVIDERS: ADMIT Internal Medicine; ATTEND Internal Medicine
PROC: 5A1955Z Respiratory Ventilation, Greater than 96 Consecutive Hours (ICD-10-PCS; 2017-11-28)
PROC: 0T9B70Z Drainage of Bladder with Drainage Device, Via Natural or Artificial Opening (ICD-10-PCS; 2017-11-28)
PROC: 0BH17EZ Insertion of Endotracheal Airway into Trachea, Via Natural or Artificial Opening (ICD-10-PCS; 2017-11-28)
PROC: 04HY32Z Insertion of Monitoring Device into Lower Artery, Percutaneous Approach (ICD-10-PCS; 2017-11-28)
PROC: 02HV33Z Insertion of Infusion Device into Superior Vena Cava, Percutaneous Approach (ICD-10-PCS; 2017-11-28)
PROC: B548ZZA Ultrasonography of Superior Vena Cava, Guidance (ICD-10-PCS; 2017-11-28)
PROC: 02H633Z Insertion of Infusion Device into Right Atrium, Percutaneous Approach (ICD-10-PCS; 2017-11-28)
PROC: B244ZZZ Ultrasonography of Right Heart (ICD-10-PCS; 2017-11-28)
PROC: 5A1D70Z Performance of Urinary Filtration, Intermittent, Less than 6 Hours Per Day (ICD-10-PCS; 2017-11-28)
PROC: 5A1D70Z Performance of Urinary Filtration, Intermittent, Less than 6 Hours Per Day (ICD-10-PCS; 2017-11-29)
PROC: 30233N1 Transfusion of Nonautologous Red Blood Cells into Peripheral Vein, Percutaneous Approach (ICD-10-PCS; 2017-11-30)
PROC: 5A1D70Z Performance of Urinary Filtration, Intermittent, Less than 6 Hours Per Day (ICD-10-PCS; 2017-11-30)
PROC: 5A1D70Z Performance of Urinary Filtration, Intermittent, Less than 6 Hours Per Day (ICD-10-PCS; 2017-12-01)
PROC: 5A1D70Z Performance of Urinary Filtration, Intermittent, Less than 6 Hours Per Day (ICD-10-PCS; 2017-12-02)
PROC: 5A1D70Z Performance of Urinary Filtration, Intermittent, Less than 6 Hours Per Day (ICD-10-PCS; 2017-12-09)
PROC: 0W9G3ZZ Drainage of Peritoneal Cavity, Percutaneous Approach (ICD-10-PCS; 2017-12-10)
PROC: 5A1D70Z Performance of Urinary Filtration, Intermittent, Less than 6 Hours Per Day (ICD-10-PCS; 2017-12-10)
PROC: 0W9G3ZZ Drainage of Peritoneal Cavity, Percutaneous Approach (ICD-10-PCS; 2017-12-11)
PROC: 0F798ZZ Dilation of Common Bile Duct, Via Natural or Artificial Opening Endoscopic (ICD-10-PCS; 2017-12-11)
PROC: 5A1D70Z Performance of Urinary Filtration, Intermittent, Less than 6 Hours Per Day (ICD-10-PCS; 2017-12-11)
PROC: 5A1D70Z Performance of Urinary Filtration, Intermittent, Less than 6 Hours Per Day (ICD-10-PCS; 2017-12-13)
PROC: 5A1D70Z Performance of Urinary Filtration, Intermittent, Less than 6 Hours Per Day (ICD-10-PCS; 2017-12-14)
PROC: 5A1D70Z Performance of Urinary Filtration, Intermittent, Less than 6 Hours Per Day (ICD-10-PCS; 2017-12-15)
PROC: 0W9F3ZZ Drainage of Abdominal Wall, Percutaneous Approach (ICD-10-PCS; 2017-12-16)
PROC: 0B113F4 Bypass Trachea to Cutaneous with Tracheostomy Device, Percutaneous Approach (ICD-10-PCS; principal; 2017-12-17)
PROC: 0BJ08ZZ Inspection of Tracheobronchial Tree, Via Natural or Artificial Opening Endoscopic (ICD-10-PCS; 2017-12-17)
PROC: 5A1D70Z Performance of Urinary Filtration, Intermittent, Less than 6 Hours Per Day (ICD-10-PCS; 2017-12-17)
PROC: 5A1D70Z Performance of Urinary Filtration, Intermittent, Less than 6 Hours Per Day (ICD-10-PCS; 2017-12-19)
PROC: 5A1D70Z Performance of Urinary Filtration, Intermittent, Less than 6 Hours Per Day (ICD-10-PCS; 2017-12-21)
PROC: 5A1D70Z Performance of Urinary Filtration, Intermittent, Less than 6 Hours Per Day (ICD-10-PCS; 2017-12-24)
PROC: 5A1D70Z Performance of Urinary Filtration, Intermittent, Less than 6 Hours Per Day (ICD-10-PCS; 2017-12-26)
DX: A41.9 Sepsis, unspecified organism (principal); K72.00 Acute and subacute hepatic failure without coma; N17.0 Acute kidney failure with tubular necrosis; R65.21 Severe sepsis with septic shock; E43 Unspecified severe protein-calorie malnutrition; K85.11 Biliary acute pancreatitis with uninfected necrosis; Z99.11 Dependence on respirator [ventilator] status; J90 Pleural effusion, not elsewhere classified; D69.6 Thrombocytopenia, unspecified; E83.51 Hypocalcemia; J96.01 Acute respiratory failure with hypoxia; E87.1 Hypo-osmolality and hyponatremia; B17.9 Acute viral hepatitis, unspecified; J98.11 Atelectasis; K56.7 Ileus, unspecified; K86.3 Pseudocyst of pancreas; R18.8 Other ascites; Z93.0 Tracheostomy status; E87.5 Hyperkalemia; B19.20 Unspecified viral hepatitis C without hepatic coma; D64.9 Anemia, unspecified; E87.70 Fluid overload, unspecified; E87.6 Hypokalemia; F17.200 Nicotine dependence, unspecified, uncomplicated; K20.9 Esophagitis, unspecified; K80.70 Calculus of gallbladder and bile duct without cholecystitis without obstruction; N50.89 Other specified disorders of the male genital organs; Z51.5 Encounter for palliative care; Z79.01 Long term (current) use of anticoagulants; Z86.711 Personal history of pulmonary embolism; Z91.19 Patient's noncompliance with other medical treatment and regimen; Z98.1 Arthrodesis status; Z99.2 Dependence on renal dialysis; Z68.30 Body mass index [BMI] 30.0-30.9, adult
CPT/HCPCS: 31622; 36415; 36556; 36569; 36600; 49083; 49406; 71045; 71250; 74018; 74174; 74176; 74177; 74181; 74328; 75989; 76700; 76937; 76942; 77001; 80048; 80053; 80061; 80069; 80074; 80076; 80307; 81001; 82042; 82150; 82248; 82306; 82330; 82533; 82728; 82803; 82962; 83540; 83550; 83605; 83690; 83735; 83970; 84100; 84134; 84443; 84478; 84484; 84550; 85014; 85018; 85025; 85610; 85730; 86022; 86703; 86706; 86850; 86870; 86880; 86900; 86902; 86922; 86923; 87040; 87070; 87075; 87077; 87081; 87086; 87102; 87186; 87205; 87340; 87521; 87899; 89051; 93005; 93970; 94002; 94003; 94690; 96361; 96365; 96375; 96376; J1170; J1644; J1815; J2020; J2185; J2250; J2405; J2543; J2704; J3010; J3360; J3430; J3475; J3480; J3486; J3490; J7070; P9047; Q9967; 92523-GN; C1751; C1769; C9113; G0435; J0610; J1642; J2270; J2310; J3420; J7030; J7040; J7050; P9016

== ENCOUNTER 2018-02-17 14:20 | Emergency (ER) | payer MEDICARE, MEDICAID ==
[~2018-02-17] VITALS: Ht 170.2 cm; Wt 67.7 kg
[~2018-02-17 14:20] MED LIST: HEPA50002 SQ; HYDR2VIA2 IVPush; INSU100V5 SQ-INSULIN; MEROPENEM IVPB; METH12VI2 SQ; PANT40VI IV; Tpn Per Pharmacy IV
[2018-02-17] MEDS ORDERED: ONDANSETRON ODT 8 MG PO STA (14:53)
[2018-02-17] MEDS ORDERED: SODIUM CHLORIDE FLUSH 10ML SYR IVF ONE (15:00)
[2018-02-17 15:44] LABS: BASOPHILS # (AUTO) 0.04 x10^3/uL (0-0.1); BASOPHILS % (AUTO) 0 % (0-1); EOSINOPHILS # (AUTO) 0.25 x10^3/uL (0-0.4); EOSINOPHILS % (AUTO) 3 % (1-7); LYMPHOCYTES # (AUTO) 1.97 x10^3/uL (1-3.4); LYMPHOCYTES % (AUTO) 19 % (22-44); MD NO; MEAN CORPUSCULAR HEMOGLOBIN 30.1 pg (27.5-34.5); MEAN CORPUSCULAR VOLUME 91.2 fL (81-97); MEAN PLATELET VOLUME 7.5 fL (7.4-10.4); MONOCYTES # (AUTO) 0.57 x10^3/uL (0.2-0.8); MONOCYTES % (AUTO) 6 % (2-9); NEUTROPHILS # (AUTO) 7.53 x10^3/uL (1.8-6.8); NEUTROPHILS % (AUTO) 73 % (42-75); PLATELET COUNT 785 x10^3/uL (130-400); RED BLOOD COUNT 4.24 x10^6/uL (4.38-5.82); RED CELL DISTRIBUTION WIDTH 17.5 % (9.4-14.8)
[2018-02-17] MEDS ORDERED: ONDANSETRON ODT 4 MG ONE (15:45)
[2018-02-17] MEDS ORDERED: MORPHINE SULFATE 4 MG/ML, 1ML ONE ×2 (15:46→17:16)
[2018-02-17] MEDS: MORPHINE SULFATE 4 MG/ML, 1ML IVPush PRN ×2 (15:49→17:19)
[2018-02-17 15:54] LABS: ALANINE AMINOTRANSFERASE 236 U/L (12-78); ALBUMIN 3.5 g/dL (3.4-5.0); ANION GAP 7 mmol/L (5-15); CALCIUM 9.8 mg/dL (8.5-10.1); CHLORIDE 104 mmol/L (98-107); CREATININE 1.07 mg/dL (0.7-1.3)
[2018-02-17 15:59] LABS: ALKALINE PHOSPHATASE 252 U/L (45-117); BILIRUBIN,TOTAL 0.6 mg/dL (0.2-1.0); TOTAL PROTEIN 10.3 g/dL (6.4-8.2); TROPONIN I < 0.015 ng/mL (0.000-0.045)
[2018-02-17] MEDS ORDERED: SODIUM CHLORIDE 0.9% 1,000ML IVBOLUS ONE (16:30)
[2018-02-17] MEDS ORDERED: METR500T8 PO (17:28)
[2018-02-17] MEDS ORDERED: DIAZ10TA4 PO (17:28)
[2018-02-17] MEDS ORDERED: MAGN400T7 PO (17:28)
[2018-02-17] MEDS ORDERED: SERT25TA PO (17:28)
[2018-02-17] MEDS ORDERED: GABA100C PO (17:28)
[2018-02-17] MEDS ORDERED: PANT40TA3 PO (17:28)
[2018-02-17] MEDS ORDERED: ASCO500T8 PO (17:28)
[2018-02-17] MEDS ORDERED: FERR324T8 PO (17:28)
[2018-02-17] MEDS ORDERED: APIX5TAB PO (17:28)
[2018-02-17] MEDS ORDERED: POLY17PO3 PO (17:28)
[2018-02-17] MEDS ORDERED: ONDA4TAB10 PO (17:28)
[2018-02-17] MEDS ORDERED: CEFD300C37 PO (17:28)
[2018-02-17] MEDS ORDERED: OXYC5TAB3 PO (17:28)
[2018-02-17] MEDS ORDERED: ACET650S21 PO (17:28)
[2018-02-17 19:11] VITALS: BP 111/72
== END 2018-02-17 19:35 | disposition home or self-care (01) ==
LOC: ED 18:16
DX: K85.90 Acute pancreatitis without necrosis or infection, unspecified (principal); K86.1 Other chronic pancreatitis; Z86.718 Personal history of other venous thrombosis and embolism; Z90.49 Acquired absence of other specified parts of digestive tract; Z72.9 Problem related to lifestyle, unspecified; Z79.01 Long term (current) use of anticoagulants
CPT/HCPCS: 36415; 71045; 71275; 80053; 83690; 83880; 84484; 85025; 93005; 96361; 96374; 96376; 99285; J7030; Q0162

== ENCOUNTER 2020-12-17 07:24 | Emergency (ER) | payer MEDICARE ==
[~2020-12-17] VITALS: Ht 170.2 cm; Wt 83.7 kg
[~2020-12-17 07:24] MED LIST changes: +ACET650S21 PO; +APIX5TAB PO; +ASCO500T8 PO; +CEFD300C37 PO; +DIAZ10TA4 PO; +FERR324T8 PO; +GABA100C PO; +MAGN400T9 PO; +METR-90 PO; +ONDA4TAB10 PO; +OXYC5TAB98 PO; +PANT40TA3 PO; +POLY17PO29 PO; +SERT25TA PO
[2020-12-17] MEDS ORDERED: DIPH,PERTUSS(ACELL),TET VAC/PF 0.5 ML IM-VACC ONE ×2 (08:30→08:51)
[2020-12-17 08:55] VITALS: BP 127/92
--- NOTE | 2020-12-17 08:59 | NUR ---
Patient given discharge instructions and they have confirmed that they understand the instructions. Patient ambulatory with steady gait.
== END 2020-12-17 09:01 | disposition home or self-care (01) ==
LOC: ED 08:40
DX: L03.113 Cellulitis of right upper limb (principal); G89.29 Other chronic pain; M79.641 Pain in right hand; M79.89 Other specified soft tissue disorders; F17.210 Nicotine dependence, cigarettes, uncomplicated
CPT/HCPCS: 90471; 90715; 99283; 99406